=== PATIENT | female | born 1955 | race Caucasian/White ===

== ENCOUNTER 2016-09-27 04:21 | Emergency (ER) | payer MEDICARE, MEDICAID ==
[2016-09-27] MEDS ORDERED: HYDROCODONE/ACETAMINOPHEN 5/325MG TABLET ONE (04:46)
[2016-09-27] MEDS ORDERED: PREDNISONE 20 MG TABLET ONE (04:46)
== END 2016-09-27 06:58 | disposition home or self-care (01) ==
LOC: ED 04:21
DX: J40 Bronchitis, not specified as acute or chronic (principal); I10 Essential (primary) hypertension
CPT/HCPCS: 99283 ×2; J7512; A9270

== ENCOUNTER 2016-10-15 18:20 | Emergency (ER) | payer MEDICARE, MEDICAID ==
[2016-10-15] MEDS ORDERED: SODIUM CHLORIDE 0.9% 1,000 ML ONE (19:04)
[2016-10-15 19:08] LABS: ABSOLUTE NEUTROPHIL COUNT 10.7 K/mm3 (1.8-7.7); BASO % 0.2 % (0.2-1.0); EOS % 0.2 % (0.9-2.9); HEMATOCRIT 36.9 % (37.0-47.0); HEMOGLOBIN 11.9 gm/l (12.0-16.0); IMM NEUT # 0.1 K/mm3 (0-0.2); IMM NEUT% 0.4 % (0-1); LYMPH # 0.8 (1.0-4.8); LYMPH % 6.4 % (15-45); MEAN CELL VOLUME 92.3 fl (81.0-99.0); MEAN CORPUSCULAR HEMOGLOBIN 29.8 pg (27.0-31.0); MEAN CORPUSCULAR HGB CONC 32.2 g/dl (33.0-37.0); MEAN PLATELET VOLUME 9.7 fl (7.4-10.4); MONO # 0.9 (0.0-0.8); MONO % 6.9 % (4-12); NEUT % 85.9 % (43-75); PLATELET COUNT 212 K/mm3 (130-400); RED CELL DISTRIBUTION WIDTH 12.9 % (11.5-14.5)
[2016-10-15 19:24] LABS: ALB/GLOB RATIO 1.6 (>1.0); ALBUMIN 3.7 gm/dL (3.5-5.7); CALCIUM 8.9 mg/dL (8.6-10.3)
[2016-10-15] MEDS ORDERED: ACETAMINOPHEN 500 MG TABLET ONE (19:24)
[2016-10-15 19:28] LABS: TROPONIN I < 0.01 ng/ml (0.0-0.06)
[2016-10-15 19:31] LABS: CKMB ISOENZYME 0.7 ng/ml (0.6-6.3)
[2016-10-15] MEDS ORDERED: AZITHROMYCIN 250 MG TABLET ONE (20:48)
[2016-10-15] MEDS ORDERED: CEFTRIAXONE 1 GRAM DUPLEX 50 ML IV ONE (20:48)
[2016-10-15] MEDS ORDERED: IBUPROFEN 200 MG TABLET ONE (20:51)
--- NOTE | 2016-10-16 09:24 | RAD ---
10/16/2016 9:20 AM CHEST - 2 VIEWS History: Cough with shortness of breath for 2 weeks. Comparison: CT chest 06/08/2015 and chest x-ray 01/09/2013 Findings: Two views of the chest are obtained. The lungs demonstrate patchy posterior left lower lobe airspace disease. There may also be a lingular component. The remainder the lungs are clear. No effusion or pneumothorax. The cardiomediastinal silhouette is unremarkable.. The osseous structures are intact.. IMPRESSION: Left basilar pneumonia..
== END 2016-10-15 21:41 | disposition home or self-care (01) ==
LOC: ED 18:20
DX: J18.9 Pneumonia, unspecified organism (principal); R06.02 Shortness of breath; I10 Essential (primary) hypertension; E03.9 Hypothyroidism, unspecified
CPT/HCPCS: 85025; 82553; 80053; 84484; 71020; 87804; 94664; 99284 ×2; 96374; 96361 ×2; 93005; A9270 ×3; J7030; J0696

== ENCOUNTER 2016-10-16 17:11 | Inpatient (IN) | payer MEDICARE, MEDICAID ==
[2016-10-16] MEDS ORDERED: LACTATED RINGERS 1,000 ML ONE ×2 (17:37→18:15)
[2016-10-16 17:41] LABS: ABSOLUTE NEUTROPHIL COUNT 14.7 K/mm3 (1.8-7.7); BASO % 0.1 % (0.2-1.0); HEMATOCRIT 38.7 % (37.0-47.0); HEMOGLOBIN 12.6 gm/l (12.0-16.0); IMM NEUT # 0.1 K/mm3 (0-0.2); IMM NEUT% 0.6 % (0-1); LYMPH % 6.1 % (15-45); MEAN CELL VOLUME 91.5 fl (81.0-99.0); MEAN CORPUSCULAR HEMOGLOBIN 29.8 pg (27.0-31.0); MEAN CORPUSCULAR HGB CONC 32.6 g/dl (33.0-37.0); MONO # 0.9 (0.0-0.8); MONO % 5.6 % (4-12); NEUT % 87.6 % (43-75); PLATELET COUNT 200 K/mm3 (130-400); RED CELL DISTRIBUTION WIDTH 13.1 % (11.5-14.5)
[2016-10-16] MEDS ORDERED: CEFTRIAXONE 1 GRAM DUPLEX 50 ML IV ONE (17:50)
[2016-10-16 17:53] LABS: ALB/GLOB RATIO 1.5 (>1.0); ALBUMIN 3.6 gm/dL (3.5-5.7); ALT/SGPT 11 U/L (7-52); BLOOD UREA NITROGEN 13 mg/dL (7-25); BUN/CREATININE RATIO 16 (6-20); CALCIUM 8.8 mg/dL (8.6-10.3); GLOMERULAR FILTRATION RATE 72 mL/min (60-85)
[2016-10-16 17:55] LABS: LIPASE < 3 U/L (11-82)
[2016-10-16] MEDS ORDERED: BLISTEX LIPSTICK 1 EACH TP PRN (19:50)
[2016-10-16] MEDS ORDERED: MENTHOL/CETYLPYRD 1 EACH LOZENGE PO PRN (19:50)
[2016-10-16] MEDS ORDERED: BISACODYL 5 MG TABLET.EC PO PRN (19:50)
[2016-10-16] MEDS ORDERED: SODIUM CHLORIDE 0.9% 100 ML IV PRN (19:50)
[2016-10-16] MEDS ORDERED: DIPHENHYDRAMINE HCL 50 MG/1 ML VIAL IV PRN (19:50)
[2016-10-16] MEDS ORDERED: MAGNESIUM HYDROXIDE 30 ML UDCUP PO PRN (19:50)
[2016-10-16] MEDS ORDERED: BISACODYL 10 MG SUP PR PRN (19:50)
[2016-10-16] MEDS ORDERED: CEFTRIAXONE SODIUM 2 G in SODIUM CHLORIDE 0.9% 100 ML IV SCH (20:00)
[2016-10-16] MEDS ORDERED: ALPRAZOLAM 0.5 MG TABLET PO PRN (20:12)
[2016-10-16 21:12] VITALS: BMI 41.8
[2016-10-16] MEDS ORDERED: PUMP TUBING ONE (21:40)
[2016-10-16] MEDS: SODIUM CHLORIDE 0.9% 1,000 ML IV SCH (21:45)
[2016-10-16] MEDS: HYDROCODONE BIT/ACETAMINOPHEN 10 MG/325 MG TAB PO SCH (21:46)
[2016-10-16] MEDS: GABAPENTIN 600 MG TABLET PO SCH (21:46)
[2016-10-16] MEDS: DOCUSATE SODIUM 100 MG CAPSULE PO SCH (21:46)
[2016-10-16] MEDS: OXYBUTYNIN CHLORIDE 5 MG TABLET PO SCH (21:46)
[2016-10-16] MEDS: LEVOFLOXACIN 750 MG/D5W 150 ML 750 MG in Premix (D5W) 150 ml Bag 1 EACH IV SCH (21:51)
[2016-10-17] MEDS: ALPRAZOLAM 0.25 MG TABLET PO PRN ×2 (01:43→12:58)
[2016-10-17] MEDS ORDERED: HYDROCODONE BIT/ACETAMINOPHEN 10 MG/325 MG TAB PO ONE (01:48)
[2016-10-17] MEDS ORDERED: KETOROLAC TROMETHAMINE 30 MG/ML 1 ML VIAL IV ONE (04:00)
[2016-10-17] MEDS: SODIUM CHLORIDE 0.9% 1,000 ML IV SCH ×2 (05:53→16:59)
[2016-10-17 06:05] LABS: ABSOLUTE NEUTROPHIL COUNT 10.1 K/mm3 (1.8-7.7); BASO % 0.2 % (0.2-1.0); EOS % 0.1 % (0.9-2.9); HEMATOCRIT 33.8 % (37.0-47.0); HEMOGLOBIN 10.7 gm/l (12.0-16.0); IMM NEUT # 0.1 K/mm3 (0-0.2); IMM NEUT% 0.6 % (0-1); LYMPH # 1.2 (1.0-4.8); LYMPH % 9.7 % (15-45); MEAN CELL VOLUME 93.1 fl (81.0-99.0); MEAN CORPUSCULAR HEMOGLOBIN 29.5 pg (27.0-31.0); MEAN CORPUSCULAR HGB CONC 31.7 g/dl (33.0-37.0); MEAN PLATELET VOLUME 9.7 fl (7.4-10.4); MONO # 0.8 (0.0-0.8); MONO % 6.4 % (4-12); PLATELET COUNT 172 K/mm3 (130-400)
--- NOTE | 2016-10-17 06:13 | HP ---
CLARITA MONK : 1955 DATE OF ADMISSION: October 16, 2016 CHIEF COMPLAINT: Abdominal pain. 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 Upon presentation to the emergency department, she stated she has three days of worsening shortness of breath and cough. On further discussion with the patient, she has had shortness of breath for the past three days with some fever and cough. She was in the emergency room yesterday for similar symptoms and was found to have a pneumonia, provided with azithromycin and discharged home. She did not improve and developed this abdominal pain and returned to the emergency department this afternoon. She does reside in a care facility. Her [id number] is her daughter. PAST MEDICAL HISTORY: Includes: 1. Organic brain syndrome/brain injury. 2. Hypothyroidism. 3. Hypertension. 4. Neuropathy. 5. Depression. 6. Anxiety. 7. History of large cell B-cell lymphoma in remission. 8. Chronic knee pain. 9. Urinary incontinence. 10. History of alcohol and drug addiction. PAST SURGICAL HISTORY: Includes: 1. Bilateral knee procedures. 2. Abdominal wall hernia repair. 3. Toe amputations. 4. Thyroidectomy. 5. Appendectomy. 6. Cholecystectomy. 7. Tubal ligation. REVIEW OF SYSTEMS: GENERAL: Fever. EENT: Congestion. No throat pain. CARDIOVASCULAR: No chest pain or pressure. RESPIRATORY: Cough and shortness of breath. ABDOMEN: She has upper quadrant abdominal pain. No nausea, vomiting, diarrhea. She is tolerating oral intake. GENITOURINARY: No difficulties with urination. No burning on urination. MUSCULOSKELETAL: Knee pain and thigh pain. NEUROLOGIC: No headaches, no numbness, tingling. ALLERGIES: SULFA. FAMILY MEDICAL HISTORY: Unknown. SOCIAL HISTORY: She resides in an adult foster care facility. with three children. Prior history of alcoholism and drug abuse MEDICATIONS: Include: 1. Senna. 2. [place]. 3. Gabapentin. 4. Ferrous sulfate. 5. Zyrtec. 6. BuSpar. 7. Colace. 8. Abilify. 9. Vitamin D3. 10. Fentanyl patch. 11. Wellbutrin. 12. Prozac. 13. Oxybutynin. 14. Flonase nasal spray. 15. Vitamin B12. 16. Vitamin B1. 17. Allopurinol. 18. Multivitamin. 19. Folic acid. 20. Levothyroxine. 21. Robitussin as needed. 22. Benadryl as needed. 23. Xanax as needed. PHYSICAL EXAM: GENERAL: Patient is alert and oriented, morbidly obese, cooperative. Mild distress due to pain. VITAL SIGNS: In the emergency room, temperature 102.7, heart rate of 108 with a blood pressure of 128/45. She is saturating 93% on three liters per nasal cannula. HEENT: Normocephalic, atraumatic. No tenderness to palpation. Mucous membranes moist. Pupils are equal, round, and reactive. Extraocular muscles are intact. No scleral icterus, conjunctival injection. NECK: Supple, trachea midline. RESPIRATORY: Coarse in the bases, crackles on the left. No wheezing. CARDIOVASCULAR: Tachycardic, it is regular. Positive S1 and S2. She has palpable pulses bilaterally radially and dorsalis pedis. No peripheral edema. ABDOMEN: Soft, nontender, no rebound, no guarding. MUSCULOSKELETAL: She is moving all extremities without difficulty. Nontender. NEUROLOGIC: She is alert and oriented. LABORATORIES: Sodium 134, potassium 3.7, chloride 100, carbon dioxide 24, BUN 13, creatinine 0.8, glucose 121, troponin less than 0.01. Total bilirubin 0.9, AST 18, ALT 11, alkaline phosphatase 85 and a lipase less than 3. White blood cell count is 16.7, hemoglobin of 12.6, hematocrit of 38.7, and platelet count 200. She has a percentage neutrophil count high at 87.6. VBG lactate of 1.1. DIAGNOSTIC IMAGING: Chest x-ray was obtained and interpreted with a left basilar pneumonia. ELECTROCARDIOGRAM: Electrocardiogram was obtained that shows a sinus tachycardia at 100 beats per minute, a [place] interval of 182 ms. QRS duration of 100 ms. QTc of 408 ms. She has a left axis deviation. No acute ST segment elevations or depressions at this time. ASSESSMENT: This is a 61-year-old female with cough and fever found to have a pneumonia, failed outpatient treatment. She was provided with a liter of fluids and a dose of azithromycin in the emergency department. She is being admitted to the floor meeting systemic inflammatory response syndrome criteria with tachycardia. She is febrile and pneumonia on imaging. She does not have any organ dysfunction at this time. PLAN: 1. We will continue fluid IV hydration. 2. We will change her antibiotics to Levaquin as she failed azithromycin outpatient treatment. 3. Monitor closely. 4. For her hypertension, we will monitor as she is not on any antihypertensive. 5. For her hypothyroidism, we will continue her levothyroxine. 6. For her depression and anxiety, we will continue her home medications. 7. For her chronic pain, we will continue her pain medications. 8. She is a FULL CODE at this time. Cc: Ozzy Starr
[2016-10-17 06:28] LABS: CALCIUM 8.3 mg/dL (8.6-10.3)
[2016-10-17] MEDS: FENTANYL PATCH 25 MCG/72 HR 1 EACH TD SCH (07:43)
[2016-10-17] MEDS: LEVOTHYROXINE SODIUM 125 MCG TABLET PO SCH (07:44)
[2016-10-17] MEDS: REMOVE PATCH 1 EACH UNIT TD SCH (07:44)
--- NOTE | 2016-10-17 08:41 | PDOC43 ---
- Subjective Chief Complaint: shortness of breath, LUQ pain Patietn awake, alert, ongoing LUQ/flank pain out of proportion to symptoms. She does not have any nausea but continued pain. Subjective: Reports Urinating Without Difficulty, Reports Shortness of Breath, Reports Cough, Reports Chest Pain, Reports Abdominal Pain, Denies Pain Tolerable , Denies Tolerating Diet Well, Denies Nausea, Denies Vomiting, Denies Fever - Objective Vital Signs Temperature 98.0 F 10/17/16 07:41 Pulse Rate 96 10/17/16 07:41 Respiratory Rate 20 10/17/16 07:49 Blood Pressure 132/64 10/17/16 07:41 O2 Saturation by Pulse Oximetry 93 10/17/16 07:41 Oxygen Delivery Method Nasal Cannula Oxygen Flow Rate 3 Intake and Output 10/15/16 10/16/16 10/17/16 23:59 23:59 23:59 Intake Total 1999 1434 Output Total 1800 Balance 1999 -366 General: Alert, Oriented x3, Cooperative, Other (pale, morbidly obese), No Acute Distress HEENT: Atraumatic, PERRLA, EOMI, Other (mucus membranes slightly dry) Lungs: Normal Air Movement, Other (crackles L base, no wheezing) Cardiovascular: Regular Rate and Rhythm, Normal S1, Normal S2 Abdomen: Soft, Tenderness, Non-Distended, No Rigid, No Rebounding Extremities: No Cyanosis, No Edema, No Tenderness Neurological: Normal Speech Psych/Mental Status: Normal Mood Laboratory 10/17/16 05:30 10/17/16 05:30 10/17/16 05:30 RBC 3.63 L MCHC 31.7 L Calcium 8.3 L Current Medications: Current meds reviewed in EMR. - Problems: Assessment/Plan (1) CAP (community acquired pneumonia) Status: Acute Assessment/Plan: presumed bacterial. Diagnosed 2/ and provided with azithromycin. Returned the next day for continued symptoms. Currently on levaquin with improvement in WBC. She has continued LUQ/flank pain out of proportion to degree of illness. Pain medications ineffective. Will obtain further imaging for possible pancreatitis, nephrolithais (2) Brain injury Qualifiers: Encounter type: initial encounter Loss of consciousness presence/ duration: without LOC Qualifier Code: (S06.9X0A) Unspecified intracranial injury without loss of consciousness, initial encounter Status: Acute Assessment/Plan: chronic condition 2nd to alcohol and drug abuse Stable (3) Hypothyroidism Qualifiers: Hypothyroidism type: acquired Qualifier Code: (E03.9) Hypothyroidism, unspecified Status: Chronic Assessment/Plan: stable (4) Hypertension Qualifiers: Hypertension type: essential hypertension Qualifier Code: (I10) Essential (primary) hypertension Status: Chronic Assessment/Plan: stable (5) Neuropathy Status: Chronic Assessment/Plan: unknown etiology, continue gabapentin (6) Depression Qualifiers: Depression Type: major depressive disorder Major depression recurrence : recurrent Active/Remission status: currently active Major depression episode severity: moderate Qualifier Code: (F33.1) Major depressive disorder , recurrent, moderate Status: Chronic Assessment/Plan: on multiple medications, complicates medical care (7) Chronic pain Qualifiers: Chronic pain type: chronic pain syndrome Qualifier Code: (G89.4) Chronic pain syndrome Status: Chronic Assessment/Plan: unsure of etiology, on fentanyl patch and schedule hydrocodone. Not effective for current pain. VTE Prophylaxis: SCD Disposition: Return to adult foster home
[2016-10-17] MEDS: GABAPENTIN 600 MG TABLET PO SCH ×3 (09:05→20:28)
[2016-10-17] MEDS: ARIPIPRAZOLE 5 MG TABLET PO SCH (09:05)
[2016-10-17] MEDS: CETIRIZINE HCL 10 MG TABLET PO SCH (09:05)
[2016-10-17] MEDS: BUSPIRONE HCL 10 MG TABLET PO SCH ×2 (09:06→20:28)
[2016-10-17] MEDS: OXYBUTYNIN CHLORIDE 5 MG TABLET PO SCH ×2 (09:07→20:27)
[2016-10-17] MEDS: ALLOPURINOL 300 MG TABLET PO SCH (09:07)
[2016-10-17] MEDS: BUPROPION HCL 150 MG XL TAB.ER.24H PO SCH (09:08)
[2016-10-17] MEDS: FLUOXETINE HCL 20 MG CAPSULE PO SCH (09:08)
[2016-10-17] MEDS: CYANOCOBALAMIN (VITAMIN B-12) 250 MCG TABLET PO SCH (09:09)
[2016-10-17] MEDS: FOLIC ACID 1 MG TABLET PO SCH (09:09)
[2016-10-17] MEDS: THIAMINE HCL 100 MG TABLET PO SCH (09:09)
[2016-10-17] MEDS: HYDROCODONE BIT/ACETAMINOPHEN 10 MG/325 MG TAB PO SCH ×4 (09:09→21:10)
[2016-10-17] MEDS: VITAMIN D3 1,000 UNITS CAP.LIQ PO SCH (09:10)
[2016-10-17] MEDS: DOCUSATE SODIUM 100 MG CAPSULE PO SCH ×2 (09:10→20:28)
[2016-10-17] MEDS: FLUTICASONE PROPIONATE 50 MCG/SPRAY 120 SPRAYS/16 G INH NS SCH (09:11)
[2016-10-17] MEDS ORDERED: IOPAMIDOL 300 (61%) 150 ML VIAL IV ONE (09:59)
[2016-10-17] MEDS: FERROUS SULFATE (65 Fe) 325 MG TABLET PO SCH (10:53)
--- NOTE | 2016-10-17 11:25 | CT ---
Exam: CT chest, abdomen and pelvis with contrast COMPARISON: Chest radiograph 10/15/[address] abdomen and pelvis 06/30/2015, 06/08/2015, 05/05/2015 and 01/09/2013 INDICATION: Pneumonia, left-sided flank pain. TECHNIQUE: CT examination of the chest, abdomen and pelvis was obtained following the administration of 125 mL Isovue-300 intravenous contrast. FINDINGS: There is a moderate left-sided pleural effusion, new since the chest radiograph 2 days ago. Although no definite pleural enhancement is seen, there is some fat stranding within the left epicardium in the effusion does appear partially loculated suggesting could reflect an empyema. There is almost complete consolidation/collapse of the left lower lobe, with some opacity also noted within the lingula. The right lung is relatively clear other than some minor right basilar atelectasis. There is no significant mediastinal or hilar lymphadenopathy by size criteria. There is no significant pericardial effusion. Diffuse esophageal thickening is noted. Surgical changes are appreciated within the stomach. A moderate amount of stool is present throughout the colon. There is no bowel obstruction, free air or free intraperitoneal fluid. There is a significant amount of soft tissue density/stranding extending along the root of the mesentery and to lesser extent about the aorta/retroperitoneum. This presumably reflects the treated bulky lymphoma seen on the 2013 CT. Spleen is at the upper limits of normal measuring 13.5 cm in maximum diameter. Gallbladder is absent. Mild intra and extrahepatic biliary ductal dilation is similar, with the distal common bile duct measuring to 9 mm. Left adrenal mass measured 2.1 cm is noted slightly decreased since 05/05/2015. There is a 1.1 cm nodule in the region of the lateral limb of the right adrenal gland which was present in retrospect and is unchanged. No new adrenal mass. The uterus is present. There is no adnexal mass. Urinary bladder unremarkable. There is no hydronephrosis. 1.9 cm low-density lesion within the inferior pole the left kidney is noted and not significantly changed since the 2013 CT. Cyst remains favored. No new renal mass. There has been interval anterior abdominal wall hernia repair. Few tiny fat-containing anterior abdominal hernias are noted. Focally prominent degenerative disc disease is noted at L2-3 and T6-7. Mild superior endplate fracture of T12 is noted and unchanged. IMPRESSION: 1. Moderate left-sided pleural effusion, which is significant change since radiograph on 10/15/2016. Given symptoms and pneumonia, consider thoracentesis for further evaluation to exclude empyema. 2. No additional acute findings identified to explain patient's left upper quadrant/left flank pain. 3. Several stable incidental findings as above, including evidence of treated lymphoma, post cholecystectomy changes, bilateral adrenal nodules, and postsurgical changes in the stomach. Findings were discussed with Dr. Vaughan 1115 hours 10/17/2016.
[2016-10-17 12:57] LABS: SPECIFIC GRAVITY 1.015 (1.001-1.030); URINE BILIRUBIN NEGATIVE (NEGATIVE); URINE BLOOD TRACE (NEGATIVE); URINE GLUCOSE (UA) NEGATIVE (NEGATIVE); URINE LEUKOCYTE ESTERASE NEGATIVE (NEGATIVE); URINE NITRITE NEGATIVE (NEGATIVE); URINE PROTEIN TRACE (NEGATIVE); URINE UROBILINOGEN NORMAL (0-1 mg/dl)
[2016-10-17] MEDS: MULTIVIT W/ MINERALS 1 TAB TABLET PO SCH (12:57)
[2016-10-17 12:58] LABS: URINE APPEARANCE CLEAR; URINE COLOR YELLOW
[2016-10-17 13:05] LABS: INR 1.08; PROTHROMBIN TIME 11.3 SECONDS (9.3-11.4)
[2016-10-17 13:12] LABS: URINE BACTERIA 0; URINE EPITHELIAL CELLS 0-1 /hpf; URINE RBC RARE /hpf; URINE WBC NEG /hpf
[2016-10-17] MEDS ORDERED: SODIUM BICARBONATE 4.2% VIAL 5 ML IM ONE (14:22)
--- NOTE | 2016-10-17 15:19 | US ---
Procedure: Ultrasound-guided left-sided thoracentesis INDICATION: New onset partially loculated left-sided pleural effusion in the setting of pneumonia. TECHNIQUE: The procedure and benefits and risks of the procedure were discussed with the patient. All questions were answered. Informed consent was obtained and witnessed and documentation was placed in the patient's medical record. After a timeout was performed documenting correct patient with name and date of as well as correct side/site, ultrasound was utilized to bobby an appropriate entrance site on the posterior left chest wall. The posterior left chest wall was prepped and draped in the usual sterile fashion. 1% lidocaine mixed with bicarbonate was administered to achieve a regional anesthesia. Under ultrasound guidance, approximately 250 mL of slightly turbid yellow fluid was withdrawn and sent to laboratory for analysis. Post procedure imaging demonstrated a minimal amount of fluid within the dependent pleural space. The patient tolerated the procedure and there were no immediate complications. IMPRESSION: Successful ultrasound-guided left-sided thoracentesis.
[2016-10-17] MEDS: LEVOFLOXACIN 750 MG/D5W 150 ML 750 MG in Premix (D5W) 150 ml Bag 1 EACH IV SCH (21:10)
[2016-10-18] MEDS: ALPRAZOLAM 0.25 MG TABLET PO PRN ×3 (00:44→22:37)
[2016-10-18] MEDS: HYDROCODONE BIT/ACETAMINOPHEN 10 MG/325 MG TAB PO SCH ×5 (00:48→20:41)
[2016-10-18] MEDS: SODIUM CHLORIDE 0.9% 1,000 ML IV SCH ×4 (02:02→22:38)
[2016-10-18 06:04] LABS: ABSOLUTE NEUTROPHIL COUNT 5.2 K/mm3 (1.8-7.7); BASO # 0.1 K/mm3 (0.0-0.2); BASO % 0.8 % (0.2-1.0); EOS # 0.2 (0.0-0.5); EOS % 2.6 % (0.9-2.9); HEMATOCRIT 40.8 % (37.0-47.0); HEMOGLOBIN 12.8 gm/l (12.0-16.0); IMM NEUT% 0.4 % (0-1); LYMPH # 2.9 (1.0-4.8); LYMPH % 31.1 % (15-45); MEAN CELL VOLUME 89.5 fl (81.0-99.0); MEAN CORPUSCULAR HEMOGLOBIN 28.1 pg (27.0-31.0); MEAN CORPUSCULAR HGB CONC 31.4 g/dl (33.0-37.0); MEAN PLATELET VOLUME 9.7 fl (7.4-10.4); MONO # 0.8 (0.0-0.8); NEUT % 56.1 % (43-75); PLATELET COUNT 191 K/mm3 (130-400); RED CELL DISTRIBUTION WIDTH 14.2 % (11.5-14.5)
[2016-10-18 06:19] LABS: CALCIUM 9.1 mg/dL (8.6-10.3)
[2016-10-18] MEDS: LEVOTHYROXINE SODIUM 125 MCG TABLET PO SCH (07:25)
[2016-10-18] MEDS: FLUTICASONE PROPIONATE 50 MCG/SPRAY 120 SPRAYS/16 G INH NS SCH (09:00)
[2016-10-18] MEDS: BUSPIRONE HCL 10 MG TABLET PO SCH ×2 (09:01→20:41)
[2016-10-18] MEDS: FLUOXETINE HCL 20 MG CAPSULE PO SCH (09:01)
[2016-10-18] MEDS: OXYBUTYNIN CHLORIDE 5 MG TABLET PO SCH ×2 (09:01→20:40)
[2016-10-18] MEDS: BUPROPION HCL 150 MG XL TAB.ER.24H PO SCH (09:01)
[2016-10-18] MEDS: ALLOPURINOL 300 MG TABLET PO SCH (09:01)
[2016-10-18] MEDS: VITAMIN D3 1,000 UNITS CAP.LIQ PO SCH (09:02)
[2016-10-18] MEDS: ARIPIPRAZOLE 5 MG TABLET PO SCH (09:02)
[2016-10-18] MEDS: FOLIC ACID 1 MG TABLET PO SCH (09:02)
[2016-10-18] MEDS: GABAPENTIN 600 MG TABLET PO SCH ×3 (09:02→20:41)
[2016-10-18] MEDS: CETIRIZINE HCL 10 MG TABLET PO SCH (09:02)
[2016-10-18] MEDS: CYANOCOBALAMIN (VITAMIN B-12) 250 MCG TABLET PO SCH (09:03)
[2016-10-18] MEDS: DOCUSATE SODIUM 100 MG CAPSULE PO SCH ×2 (09:03→20:40)
[2016-10-18] MEDS: THIAMINE HCL 100 MG TABLET PO SCH (09:03)
[2016-10-18] MEDS: REMOVE PATCH 1 EACH UNIT TD SCH (09:25)
--- NOTE | 2016-10-18 10:38 | RAD ---
History: Follow-up effusion. Comparison: CT examination dated 10/17/2016. Technique: 2 views Findings: Images demonstrated normal appearance of the osseous structures. The heart size appears to be stable. There is blunting of the left costophrenic sulcus consistent with a left pleural effusion with a laterally located loculated component similar to the appearance on prior CT examination. The right lung field is clear. The hilar and mediastinal structures are intact. Impression: 1. Reidentification of the left pleural effusion with evidence of loculated components both laterally and posteriorly. The appearance is stable to slightly improved to the appearance on prior CT examination.
[2016-10-18] MEDS ORDERED: IV START KIT ONE (10:57)
[2016-10-18] MEDS: FERROUS SULFATE (65 Fe) 325 MG TABLET PO SCH (12:00)
[2016-10-18] MEDS: MULTIVIT W/ MINERALS 1 TAB TABLET PO SCH (12:00)
--- NOTE | 2016-10-18 16:36 | PDOC43 ---
- Subjective Chief Complaint: shortness of breath, LUQ pain Patient awake without complaints. Her left flank/UQ pain slight improvement. Breathing is easier, cough decreasing. Tolerating diet Subjective: Reports Pain Tolerable, Reports Tolerating Diet Well, Reports Adequate Oral Intake, Reports Urinating Without Difficulty, Reports Cough, Reports Abdominal Pain, Denies Shortness of Breath, Denies Chest Pain, Denies Nausea, Denies Vomiting - Objective Vital Signs Temperature 98.0 F 10/18/16 15:31 Pulse Rate 100 10/18/16 15:31 Respiratory Rate 20 10/18/16 15:31 Blood Pressure 132/60 10/18/16 15:31 O2 Saturation by Pulse Oximetry 94 10/18/16 15:31 Oxygen Delivery Method Nasal Cannula Oxygen Flow Rate 2 Intake and Output 10/16/16 10/17/16 10/18/16 23:59 23:59 23:59 Intake Total 1999 3237 5559 Output Total 2500 600 Balance 1999 737 2179 General: Alert, Oriented x3, Cooperative, Other (pale, morbidly obese), No Acute Distress HEENT: Atraumatic, PERRLA, EOMI, Mucous membr. moist/pink Lungs: Normal Air Movement, Other (crackle LLL) Cardiovascular: Regular Rate and Rhythm, Normal S1, Normal S2 Abdomen: Soft, Non-Distended, No Rigid, No Tenderness, No Rebounding Extremities: No Cyanosis, No Edema, No Tenderness Neurological: Normal Speech Psych/Mental Status: Normal Mood Laboratory 10/18/16 05:30 10/18/16 05:30 10/18/16 05:30 MCHC 31.4 L Estimated GFR 56 L Current Medications: Current meds reviewed in EMR. - Problems: Assessment/Plan (1) CAP (community acquired pneumonia) Status: Acute Assessment/Plan: presumed bacterial. Diagnosed 10/15 and provided with azithromycin. Returned the next day for continued symptoms. Currently on levaquin with improvement in WBC. She has continued LUQ/flank pain out of proportion to degree of illness. Pain medications ineffective. Will obtain further imaging for possible pancreatitis, nephrolithais CT revealed pleural effusion. Thoracentesis performed but fluid collection loculated and very little fluid obtained. Slight improvement on CXR this morning. WBC trending down to expected range. BC with gram positive cocci in clusters, adding vancomycin. Still requiring supplemental oxygen (2) Brain injury Qualifiers: Encounter type: subsequent encounter Loss of consciousness presence/ duration: without LOC Qualifier Code: (S06.9X0D) Unspecified intracranial injury without loss of consciousness, subsequent encounter Status: Chronic Assessment/Plan: chronic condition 2nd to alcohol and drug abuse Stable Chronic brain injury 2nd to drug and alcohol abuse and dependence. Stable condition (3) Hypothyroidism Qualifiers: Hypothyroidism type: acquired Qualifier Code: (E03.9) Hypothyroidism, unspecified Status: Chronic Assessment/Plan: stable (4) Hypertension Qualifiers: Hypertension type: essential hypertension Qualifier Code: (I10) Essential (primary) hypertension Status: Chronic Assessment/Plan: stable (5) Neuropathy Status: Chronic Assessment/Plan: unknown etiology, continue gabapentin (6) Depression Qualifiers: Depression Type: major depressive disorder Major depression recurrence : recurrent Active/Remission status: currently active Major depression episode severity: moderate Qualifier Code: (F33.1) Major depressive disorder , recurrent, moderate Status: Chronic Assessment/Plan: on multiple medications, complicates medical care (7) Chronic pain Qualifiers: Chronic pain type: chronic pain syndrome Qualifier Code: (G89.4) Chronic pain syndrome Status: Chronic Assessment/Plan: unsure of etiology, on fentanyl patch and schedule hydrocodone. Not effective for current pain. VTE Prophylaxis: SCD Disposition: Return to adult foster home
[2016-10-18] MEDS: VANCOMYCIN HCL 2.5 G in SODIUM CHLORIDE 0.9% 500 ML IV SCH (17:16)
[2016-10-18] MEDS: LEVOFLOXACIN 750 MG/D5W 150 ML 750 MG in Premix (D5W) 150 ml Bag 1 EACH IV SCH (20:40)
[2016-10-19] MEDS: ACETAMINOPHEN 325 MG TABLET PO PRN ×4 (00:48→22:32)
[2016-10-19] MEDS: SODIUM CHLORIDE 0.9% 1,000 ML IV SCH (06:38)
[2016-10-19] MEDS: LEVOTHYROXINE SODIUM 125 MCG TABLET PO SCH (07:54)
[2016-10-19 07:56] LABS: BODY FLUID APPEARANCE TURBID; BODY FLUID COLOR YELLOW; BODY FLUID RBC 3000 k/uL
[2016-10-19 07:57] LABS: BODY FLUID WBC 3577 /uL
[2016-10-19] MEDS ORDERED: FLUTICASONE PROPIONATE 50 MCG/SPRAY 120 SPRAYS/16 G INH NS SCH (08:15)
[2016-10-19 09:14] LABS: ABSOLUTE NEUTROPHIL COUNT 7.7 K/mm3 (1.8-7.7); BASO % 0.2 % (0.2-1.0); EOS # 0.1 (0.0-0.5); EOS % 1.3 % (0.9-2.9); HEMATOCRIT 33.9 % (37.0-47.0); IMM NEUT # 0.1 K/mm3 (0-0.2); IMM NEUT% 0.9 % (0-1); LYMPH # 0.7 (1.0-4.8); LYMPH % 7.7 % (15-45); MEAN CELL VOLUME 90.6 fl (81.0-99.0); MEAN CORPUSCULAR HEMOGLOBIN 29.4 pg (27.0-31.0); MEAN CORPUSCULAR HGB CONC 32.4 g/dl (33.0-37.0); MEAN PLATELET VOLUME 9.7 fl (7.4-10.4); MONO # 0.6 (0.0-0.8); MONO % 6.8 % (4-12); NEUT % 83.1 % (43-75); PLATELET COUNT 190 K/mm3 (130-400); RED CELL DISTRIBUTION WIDTH 13.4 % (11.5-14.5)
[2016-10-19] MEDS: FLUTICASONE PROPIONATE 50 MCG/SPRAY 120 SPRAYS/16 G INH NS SCH (09:27)
[2016-10-19] MEDS: BUPROPION HCL 150 MG XL TAB.ER.24H PO SCH (09:28)
[2016-10-19] MEDS: BUSPIRONE HCL 10 MG TABLET PO SCH ×2 (09:28→20:50)
[2016-10-19] MEDS: DOCUSATE SODIUM 100 MG CAPSULE PO SCH ×2 (09:28→20:51)
[2016-10-19] MEDS: ARIPIPRAZOLE 5 MG TABLET PO SCH (09:28)
[2016-10-19] MEDS: THIAMINE HCL 100 MG TABLET PO SCH (09:29)
[2016-10-19] MEDS: VITAMIN D3 1,000 UNITS CAP.LIQ PO SCH (09:29)
[2016-10-19] MEDS: ALLOPURINOL 300 MG TABLET PO SCH (09:29)
[2016-10-19] MEDS: CETIRIZINE HCL 10 MG TABLET PO SCH (09:29)
[2016-10-19] MEDS: FLUOXETINE HCL 20 MG CAPSULE PO SCH (09:29)
[2016-10-19] MEDS: OXYBUTYNIN CHLORIDE 5 MG TABLET PO SCH ×2 (09:30→20:50)
[2016-10-19] MEDS: FOLIC ACID 1 MG TABLET PO SCH (09:30)
[2016-10-19] MEDS: CYANOCOBALAMIN (VITAMIN B-12) 250 MCG TABLET PO SCH (09:30)
[2016-10-19] MEDS: GABAPENTIN 600 MG TABLET PO SCH ×3 (09:31→20:50)
[2016-10-19] MEDS: HYDROCODONE BIT/ACETAMINOPHEN 10 MG/325 MG TAB PO SCH ×4 (09:31→20:51)
[2016-10-19 09:35] LABS: CALCIUM 8.2 mg/dL (8.6-10.3)
--- NOTE | 2016-10-19 09:54 | PDOC43 ---
- Subjective Chief Complaint: shortness of breath, LUQ pain Patient feeling improvement, pain is lessening. Shortness of breath and cough improving. She is tolerating diet and working with therapy Subjective: Reports Pain Tolerable, Reports Tolerating Diet Well, Reports Adequate Oral Intake, Reports Urinating Without Difficulty, Reports Shortness of Breath, Reports Cough, Denies Chest Pain, Denies Abdominal Pain, Denies Nausea, Denies Vomiting - Objective Vital Signs Temperature 98.6 F 10/19/16 07:37 Pulse Rate 101 10/19/16 07:37 Respiratory Rate 20 10/19/16 08:00 Blood Pressure 168/93 10/19/16 07:37 O2 Saturation by Pulse Oximetry 95 10/19/16 07:37 Oxygen Delivery Method Nasal Cannula Oxygen Flow Rate 2 Intake and Output 10/17/16 10/18/16 10/19/16 23:59 23:59 23:59 Intake Total 3237 5380 2448 Output Total 2500 1800 450 Balance 737 3580 1997 General: Alert, Oriented x3, Cooperative, No Acute Distress HEENT: Atraumatic, PERRLA, EOMI, Mucous membr. moist/pink Lungs: Normal Air Movement, Other (crackles left abreu) Cardiovascular: Regular Rate and Rhythm, Normal S1, Normal S2 Abdomen: Soft, Non-Distended, No Rigid, No Tenderness, No Rebounding Extremities: No Cyanosis, No Edema, No Tenderness Neurological: Normal Speech Psych/Mental Status: Normal Mood Laboratory 10/19/16 09:00 10/19/16 09:00 10/19/16 09:00 RBC 3.74 L MCHC 32.4 L Calcium 8.2 L Current Medications: Current meds reviewed in EMR. - Problems: Assessment/Plan (1) CAP (community acquired pneumonia) Status: Acute Assessment/Plan: presumed bacterial. Diagnosed 10/15 and provided with azithromycin. Returned the next day for continued symptoms. Currently on levaquin with improvement in WBC. She has continued LUQ/flank pain out of proportion to degree of illness. Pain medications ineffective. Will obtain further imaging for possible pancreatitis, nephrolithais CT revealed pleural effusion. Thoracentesis performed but fluid collection loculated and very little fluid obtained. Slight improvement on CXR this morning. WBC trending down to expected range. BC with gram positive cocci in clusters, adding vancomycin. Still requiring supplemental oxygen. Fluid culture with presumptive staph aureus, sensitivities TBD (2) Brain injury Qualifiers: Encounter type: subsequent encounter Loss of consciousness presence/ duration: without LOC Qualifier Code: (S06.9X0D) Unspecified intracranial injury without loss of consciousness, subsequent encounter Status: Chronic Assessment/Plan: chronic condition 2nd to alcohol and drug abuse Stable Chronic brain injury 2nd to drug and alcohol abuse and dependence. Stable condition (3) Hypothyroidism Qualifiers: Hypothyroidism type: acquired Qualifier Code: (E03.9) Hypothyroidism, unspecified Status: Chronic Assessment/Plan: stable (4) Hypertension Qualifiers: Hypertension type: essential hypertension Qualifier Code: (I10) Essential (primary) hypertension Status: Chronic Assessment/Plan: stable (5) Neuropathy Status: Chronic Assessment/Plan: unknown etiology, continue gabapentin (6) Depression Qualifiers: Depression Type: major depressive disorder Major depression recurrence : recurrent Active/Remission status: currently active Major depression episode severity: moderate Qualifier Code: (F33.1) Major depressive disorder , recurrent, moderate Status: Chronic Assessment/Plan: on multiple medications, complicates medical care (7) Chronic pain Qualifiers: Chronic pain type: chronic pain syndrome Qualifier Code: (G89.4) Chronic pain syndrome Status: Chronic Assessment/Plan: unsure of etiology, on fentanyl patch and schedule hydrocodone. Not effective for current pain. (8) Sepsis Qualifiers: Sepsis type: sepsis due to unspecified organism Qualifier Code: (A41.9 ) Sepsis, unspecified organism Status: Acute Assessment/Plan: Resolved. 2nd to CAP with presumptive staph aureus on pleural fluid, waiting sensitivities. Still requires supplemental oxygen VTE Prophylaxis: SCD Disposition: Return to adult foster home
[2016-10-19] MEDS: FERROUS SULFATE (65 Fe) 325 MG TABLET PO SCH (11:54)
[2016-10-19] MEDS: ALPRAZOLAM 0.25 MG TABLET PO PRN ×2 (11:55→22:31)
[2016-10-19] MEDS: MULTIVIT W/ MINERALS 1 TAB TABLET PO SCH (11:55)
[2016-10-19 16:55] LABS: BODY FLUID MONONUCLEAR 4 %; BODY FLUID NEUTROPHIL 96 %; BODY FLUID SOURCE PLEURAL
[2016-10-19] MEDS: VANCOMYCIN HCL 2.5 G in SODIUM CHLORIDE 0.9% 500 ML IV SCH (17:04)
[2016-10-19] MEDS: LEVOFLOXACIN 750 MG/D5W 150 ML 750 MG in Premix (D5W) 150 ml Bag 1 EACH IV SCH (20:52)
[2016-10-20] MEDS: ACETAMINOPHEN 325 MG TABLET PO PRN ×2 (04:41→19:18)
[2016-10-20 06:33] LABS: HEMATOCRIT 30.9 % (37.0-47.0); HEMOGLOBIN 10.2 gm/l (12.0-16.0); MEAN CELL VOLUME 90.4 fl (81.0-99.0); MEAN CORPUSCULAR HEMOGLOBIN 29.8 pg (27.0-31.0); RED CELL DISTRIBUTION WIDTH 13.4 % (11.5-14.5)
[2016-10-20 06:55] LABS: CALCIUM 8.3 mg/dL (8.6-10.3)
[2016-10-20] MEDS: FENTANYL PATCH 25 MCG/72 HR 1 EACH TD SCH (07:33)
[2016-10-20] MEDS: LEVOTHYROXINE SODIUM 125 MCG TABLET PO SCH (07:34)
[2016-10-20] MEDS: HYDROCODONE BIT/ACETAMINOPHEN 10 MG/325 MG TAB PO SCH ×5 (07:50→20:40)
[2016-10-20] MEDS: CETIRIZINE HCL 10 MG TABLET PO SCH (09:11)
[2016-10-20] MEDS: BUPROPION HCL 150 MG XL TAB.ER.24H PO SCH (09:11)
[2016-10-20] MEDS: GABAPENTIN 600 MG TABLET PO SCH ×3 (09:12→20:39)
[2016-10-20] MEDS: FLUOXETINE HCL 20 MG CAPSULE PO SCH (09:12)
[2016-10-20] MEDS: BUSPIRONE HCL 10 MG TABLET PO SCH ×2 (09:12→19:17)
[2016-10-20] MEDS: DOCUSATE SODIUM 100 MG CAPSULE PO SCH ×2 (09:12→20:39)
[2016-10-20] MEDS: ALLOPURINOL 300 MG TABLET PO SCH (09:12)
[2016-10-20] MEDS: THIAMINE HCL 100 MG TABLET PO SCH (09:13)
[2016-10-20] MEDS: FOLIC ACID 1 MG TABLET PO SCH (09:13)
[2016-10-20] MEDS: CYANOCOBALAMIN (VITAMIN B-12) 250 MCG TABLET PO SCH (09:13)
[2016-10-20] MEDS: OXYBUTYNIN CHLORIDE 5 MG TABLET PO SCH ×2 (09:13→20:40)
[2016-10-20] MEDS: VITAMIN D3 1,000 UNITS CAP.LIQ PO SCH (09:13)
[2016-10-20] MEDS: ARIPIPRAZOLE 5 MG TABLET PO SCH (12:57)
[2016-10-20] MEDS: MULTIVIT W/ MINERALS 1 TAB TABLET PO SCH (12:57)
[2016-10-20] MEDS: FLUTICASONE PROPIONATE 50 MCG/SPRAY 120 SPRAYS/16 G INH NS SCH (12:57)
[2016-10-20] MEDS: FERROUS SULFATE (65 Fe) 325 MG TABLET PO SCH (12:58)
[2016-10-20] MEDS: REMOVE PATCH 1 EACH UNIT TD SCH (13:06)
[2016-10-20] MEDS ORDERED: LORAZEPAM 2 MG/ML 1ML SDV IV PRN (16:20)
--- NOTE | 2016-10-20 16:21 | PDOC43 ---
- Subjective Chief Complaint: shortness of breath, LUQ pain Patient reports feeling better today, but still sore on the L side of her chest , although it is improving some. No new c/o. - Objective Vital Signs Temperature 98.0 F 10/20/16 09:14 Pulse Rate 96 10/20/16 09:14 Respiratory Rate 20 10/20/16 09:14 Blood Pressure 156/101 10/20/16 09:14 O2 Saturation by Pulse Oximetry 94 10/20/16 09:14 Oxygen Delivery Method Room Air Oxygen Flow Rate 0 Vital Signs Last 12 Hours Temp Pulse Resp BP Pulse Ox 10/20/16 09:14 98.0 F 96 20 156/101 94 10/20/16 08:50 98 148/95 92 10/20/16 08:00 89 91 10/20/16 07:59 20 10/20/16 07:33 92 10/20/16 07:32 98.0 F 94 20 150/84 89 Intake and Output 10/18/16 10/19/16 10/20/16 23:59 23:59 23:59 Intake Total 5380 3523 200 Output Total 1800 1450 900 Balance 3580 2073 -700 General: Alert, Cooperative, No Acute Distress Lungs: Other (decreased on L side, some hesitation noted.) Cardiovascular: Regular Rate and Rhythm Abdomen: Soft, Normal Bowel Sounds, Non-Distended Extremities: No Edema Skin: Warm, Other (pale) Neurological: Normal Speech Psych/Mental Status: Normal Affect, Normal Mood Laboratory 10/20/16 05:30 10/20/16 05:30 10/20/16 05:30 RBC 3.42 L Calcium 8.3 L CXR 10/20/16 Impression: 1. Reidentification of the left pleural effusion with evidence of loculated components both laterally and posteriorly. The appearance is stable to slightly improved to the appearance on prior CT examination. Current Medications: Current meds reviewed in EMR. Active Medications Acetaminophen (Tylenol) 650 mg PO Q6-8H PRN PRN Reason: Pain Last Admin: 10/20/16 04:41 Dose: 650 mg Acetaminophen/Hydrocodone Bitart ([place] 10/325) 1 tab PO QID [facility] Last Admin: 10/20/16 12:58 Dose: 1 tab Allopurinol (Zyloprim) 300 mg PO DAILY [facility] Last Admin: 10/20/16 09:12 Dose: 300 mg Alprazolam (Xanax) 0.5 mg PO TID PRN PRN Reason: Anxiety Last Admin: 10/19/16 22:31 Dose: 0.5 mg Aripiprazole (Abilify) 5 mg PO DAILY [facility] Benzocaine/Menthol (Cepacol) 1 each PO PRN PRN PRN Reason: Sore Throat Bisacodyl (Dulcolax) 10 mg [place] DAILY PRN PRN Reason: Constipation Bisacodyl (Dulcolax) 5 mg PO DAILY PRN PRN Reason: Constipation Bupropion HCl (Wellbutrin Xl) 300 mg PO QAM [facility] Last Admin: 10/20/16 09:11 Dose: 300 mg Buspirone HCl (Buspar) 30 mg PO QAM [facility] Last Admin: 10/20/16 09:12 Dose: 30 mg Buspirone HCl (Buspar) 15 mg PO QPM [facility] Last Admin: 10/19/16 20:50 Dose: 15 mg Cetirizine HCl (Zyrtec) 10 mg PO DAILY [facility] Last Admin: 10/20/16 09:11 Dose: 10 mg Cholecalciferol (Vitamin D3) 1,000 units PO DAILY [facility] Last Admin: 10/20/16 09:13 Dose: 1,000 units Cyanocobalamin (Vitamin B-12) 125 mcg PO DAILY [facility] Last Admin: 10/20/16 09:13 Dose: 125 mcg Docusate Sodium (Colace) 100 mg PO BID [facility] Last Admin: 10/20/16 09:12 Dose: 100 mg Fentanyl (Duragesic 25) 1 each TD Q72H [facility] Last Admin: 10/20/16 07:33 Dose: 1 each Ferrous Sulfate (Ferrous Sulfate) 325 mg PO 1130 [facility] Last Admin: 10/20/16 12:58 Dose: 325 mg Fluoxetine HCl (Prozac) 80 mg PO DAILY [facility] Last Admin: 10/20/16 09:12 Dose: 80 mg Fluticasone Propionate (Flonase Nasal [place]) 1 sprays NS DAILY [facility] Last Admin: 10/20/16 12:57 Dose: 1 sprays Folic Acid (Folic Acid) 1 mg PO DAILY [facility] Last Admin: 10/20/16 09:13 Dose: 1 mg Gabapentin (Neurontin) 600 mg PO TID [facility] Last Admin: 10/20/16 09:12 Dose: 600 mg Sodium Chloride (Sodium Chloride 0.9%) 100 mls @ 25 mls/hr IV PRN PRN PRN Reason: Flush Levofloxacin/Dextrose 750 mg/ (Premix (D5W) 150 ml Bag) 150 mls @ 100 mls/hr IV Q24H [facility] Last Admin: 10/19/16 20:52 Dose: 100 mls/hr Vancomycin HCl 2.5 g/ Sodium (Chloride) 550 mls @ 275 mls/hr IV Q24H [facility] PRN Reason: Protocol Last Admin: 10/19/16 17:04 Dose: 275 mls/hr Levothyroxine Sodium (Levothroid) 125 mcg PO QAMAC [facility] Last Admin: 10/20/16 07:34 Dose: 125 mcg Magnesium Hydroxide (Milk Of Magnesia) 30 ml PO DAILY PRN PRN Reason: Constipation Miscellaneous (Remove Patch) 1 each TD Q3D [facility] Last Admin: 10/20/16 13:06 Dose: 1 each Multivitamins/Minerals (Theragran-M) 1 tab PO 1200 [facility] Last Admin: 10/20/16 12:57 Dose: 1 tab Oxybutynin Chloride (Ditropan) 10 mg PO BID [facility] Last Admin: 10/20/16 09:13 Dose: 10 mg Petrolatum/Paraffin/Mineral Oil (Blistex) 1 each TP PRN PRN PRN Reason: Dry and/or chapped lips Sodium Chloride (Normal Saline 10ml Flush) 10 - 50 ml IV PRN PRN PRN Reason: IV Flush Last Admin: 10/19/16 22:32 Dose: 10 ml Sodium Chloride (Normal Saline 10ml Flush) 10 ml IV Q8HR [facility] Last Admin: 10/20/16 01:47 Dose: 10 ml Thiamine HCl (Thiamine Hcl) 100 mg PO DAILY [facility] Last Admin: 10/20/16 09:13 Dose: 100 mg - Problems: Assessment/Plan (1) CAP (community acquired pneumonia) Status: AcuteAssessment/Plan: presumed bacterial, with MRSA identified on culture from thoracocentesis. Diagnosed 2, initially tx with azithromycin. Had returned the next day for continued symptoms. Had been on Levaquin with improvement in WBC, but continued LUQ/flank pain out of proportion to degree of illness. CT revealed pleural effusion. Thoracentesis performed but fluid collection loculated and very little fluid obtained. Slight improvement on CXR, WBC trending down to expected range. BC with gram positive cocci in clusters (turned out to be coag neg), added vancomycin. However, Fluid culture with MRSA. Checking LLD film to see degree of clearing, and if referral to chest surgeon/ VATS desired. Continue vancomycin consider for PICC line as well. 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 Pleasant and alert today. (3) Chronic pain Qualifiers: Chronic pain type: chronic pain syndrome Qualifier Code: (G89.4) Chronic pain syndrome Status: ChronicAssessment/Plan: Persisting effusion suspected cause, on fentanyl patch and scheduled hydrocodone. (4) Hypertension Qualifiers: Hypertension type: essential hypertension Qualifier Code: (I10) Essential (primary) hypertension Status: ChronicAssessment/Plan: stable. VTE Prophylaxis: SCD Disposition: Return to adult foster home anticipated, but will need to see resolution of effusion
[2016-10-20] MEDS: VANCOMYCIN HCL 2.5 G in SODIUM CHLORIDE 0.9% 500 ML IV SCH (16:49)
--- NOTE | 2016-10-20 16:55 | RAD ---
History: Follow-up effusion. Comparison: To 2016. Technique: 2 views Findings: 3 views of the chest including a left lateral decubitus view were performed. The osseous structures remain intact. The heart size is stable. There is blunting of the left costophrenic sulcus with increased density again noted along the lateral aspect of the left chest. The appearance is consistent with a left pleural effusion with a likely loculated component. The appearance is similar to that seen on prior plain film examination. The decubitus view is somewhat difficult to interpret as the dependent left lung is not well aerated due to its dependent position. However, the amount of aerated lung is relatively stable to the frontal view obtained. Impression: 1. Blunting of the left costophrenic sulcus suggestive of a left pleural effusion with the suggestion of a loculated component laterally. The appearance is similar to that seen on prior exam of 10/18/2016. As the appearance is relatively stable on the decubitus view, this suggests the majority may be loculated.
[2016-10-20] MEDS: LEVOFLOXACIN 750 MG/D5W 150 ML 750 MG in Premix (D5W) 150 ml Bag 1 EACH IV SCH (20:40)
[2016-10-20] MEDS: ALPRAZOLAM 0.25 MG TABLET PO PRN (21:51)
[2016-10-20] MEDS: NAPROXEN 250 MG TABLET PO PRN (21:51)
[2016-10-21] MEDS: HYDROCODONE BIT/ACETAMINOPHEN 10 MG/325 MG TAB PO SCH ×6 (01:11→20:29)
[2016-10-21 06:45] LABS: ABSOLUTE NEUTROPHIL COUNT 5.3 K/mm3 (1.8-7.7); BASO % 0.4 % (0.2-1.0); EOS # 0.2 (0.0-0.5); EOS % 3.1 % (0.9-2.9); HEMATOCRIT 32.5 % (37.0-47.0); HEMOGLOBIN 10.3 gm/l (12.0-16.0); IMM NEUT # 0.2 K/mm3 (0-0.2); LYMPH # 1.2 (1.0-4.8); LYMPH % 16.1 % (15-45); MEAN CELL VOLUME 91.5 fl (81.0-99.0); MEAN CORPUSCULAR HGB CONC 31.7 g/dl (33.0-37.0); MEAN PLATELET VOLUME 9.7 fl (7.4-10.4); MONO # 0.6 (0.0-0.8); MONO % 7.5 % (4-12); NEUT % 70.9 % (43-75); PLATELET COUNT 215 K/mm3 (130-400); RED CELL DISTRIBUTION WIDTH 13.3 % (11.5-14.5)
[2016-10-21 07:02] LABS: ALBUMIN 2.7 gm/dL (3.5-5.7); CALCIUM 8.5 mg/dL (8.6-10.3)
[2016-10-21] MEDS: LEVOTHYROXINE SODIUM 125 MCG TABLET PO SCH (07:25)
--- NOTE | 2016-10-21 08:09 | RAD ---
Exam: Portable chest COMPARISON: Multiple similar previous exams, the most recent of which was obtained on 10/20/2016 INDICATION: Follow-up pleural effusion. Findings: A semierect AP portable view of the chest at 0642 hours demonstrates a persistent a loculated left-sided pleural effusion, not significantly changed since yesterday's exam. Left basilar airspace disease persists. Right lung remains clear. Cardiac silhouette is within normal limits. Numerable surgical clips are again noted in the upper abdomen. IMPRESSION: Persistent loculated left-sided pleural effusion, similar to that seen yesterday.
[2016-10-21] MEDS ORDERED: ARIPIPRAZOLE 10 MG TABLET PO SCH (09:00)
[2016-10-21] MEDS: FLUTICASONE PROPIONATE 50 MCG/SPRAY 120 SPRAYS/16 G INH NS SCH (09:18)
[2016-10-21] MEDS: CYANOCOBALAMIN (VITAMIN B-12) 250 MCG TABLET PO SCH (09:19)
[2016-10-21] MEDS: THIAMINE HCL 100 MG TABLET PO SCH (09:19)
[2016-10-21] MEDS: FLUOXETINE HCL 20 MG CAPSULE PO SCH (09:20)
[2016-10-21] MEDS: VITAMIN D3 1,000 UNITS CAP.LIQ PO SCH (09:20)
[2016-10-21] MEDS: BUSPIRONE HCL 10 MG TABLET PO SCH ×2 (09:21→20:27)
[2016-10-21] MEDS: CETIRIZINE HCL 10 MG TABLET PO SCH (09:21)
[2016-10-21] MEDS: BUPROPION HCL 150 MG XL TAB.ER.24H PO SCH (09:22)
[2016-10-21] MEDS: OXYBUTYNIN CHLORIDE 5 MG TABLET PO SCH ×2 (09:23→20:29)
[2016-10-21] MEDS: DOCUSATE SODIUM 100 MG CAPSULE PO SCH ×2 (09:23→20:27)
[2016-10-21] MEDS: GABAPENTIN 600 MG TABLET PO SCH ×3 (09:23→20:27)
[2016-10-21] MEDS: ALLOPURINOL 300 MG TABLET PO SCH (09:24)
[2016-10-21] MEDS: FOLIC ACID 1 MG TABLET PO SCH (09:24)
--- NOTE | 2016-10-21 10:42 | PDOC43 ---
- Subjective Chief Complaint: shortness of breath, LUQ pain Patient reports some soreness at pigtail site, but otherwise breathing ok, doing ok. No new c/o. Got PICC line as well today. - Objective Vital Signs Temperature 98.3 F 10/21/16 07:11 Pulse Rate 90 10/21/16 07:11 Respiratory Rate 16 10/21/16 07:11 Blood Pressure 118/71 10/21/16 07:11 O2 Saturation by Pulse Oximetry 94 10/21/16 08:10 Oxygen Delivery Method Nasal Cannula Oxygen Flow Rate 1 Vital Signs Last 12 Hours Temp Pulse Resp BP Pulse Ox 10/21/16 08:10 94 10/21/16 07:11 98.3 F 90 16 118/71 94 10/21/16 02:02 97.7 F 90 16 101/59 91 10/21/16 02:00 16 Intake and Output 10/19/16 10/20/16 10/21/16 23:59 23:59 23:59 Intake Total 3523 1160 650 Output Total 1450 1700 350 Balance 2073 -540 300 General: Alert, Cooperative, No Acute Distress HEENT: Atraumatic Lungs: Other (air movement fairly good, but crackles at L base posteriorly, drain now in place, min output so far.) Cardiovascular: Regular Rate and Rhythm Abdomen: Soft, Normal Bowel Sounds, Non-Distended Extremities: No Edema, No Tenderness Skin: No Normal Color (sl pale) Neurological: Normal Speech Laboratory 10/21/16 06:20 10/21/16 06:20 10/21/16 06:20 RBC 3.55 L MCHC 31.7 L Calcium 8.5 L Alkaline Phosphatase 110 H Total Protein 5.4 L Albumin 2.7 L % Immature Granulocyt 2.0 H Current Medications: Current meds reviewed in EMR. Active Medications Acetaminophen (Tylenol) 650 mg PO Q6-8H PRN PRN Reason: Pain Last Admin: 10/20/16 19:18 Dose: 650 mg Acetaminophen/Hydrocodone Bitart ([place] 10/325) 0.5 - 1 tab PO Q4H [facility] Last Admin: 10/21/16 09:21 Dose: 1 tab Allopurinol (Zyloprim) 300 mg PO DAILY [facility] Last Admin: 10/21/16 09:24 Dose: 300 mg Alprazolam (Xanax) 0.5 mg PO TID PRN PRN Reason: Anxiety Last Admin: 10/20/16 21:51 Dose: 0.5 mg Aripiprazole (Abilify) 5 mg PO DAILY [facility] Last Admin: 10/21/16 09:19 Dose: 5 mg Benzocaine/Menthol (Cepacol) 1 each PO PRN PRN PRN Reason: Sore Throat Bisacodyl (Dulcolax) 10 mg [place] DAILY PRN PRN Reason: Constipation Bisacodyl (Dulcolax) 5 mg PO DAILY PRN PRN Reason: Constipation Bupropion HCl (Wellbutrin Xl) 300 mg PO QAM [facility] Last Admin: 10/21/16 09:22 Dose: 300 mg Buspirone HCl (Buspar) 30 mg PO QAM [facility] Last Admin: 10/21/16 09:21 Dose: 30 mg Buspirone HCl (Buspar) 15 mg PO QPM [facility] Last Admin: 10/20/16 19:17 Dose: 15 mg Cetirizine HCl (Zyrtec) 10 mg PO DAILY [facility] Last Admin: 10/21/16 09:21 Dose: 10 mg Cholecalciferol (Vitamin D3) 1,000 units PO DAILY [facility] Last Admin: 10/21/16 09:20 Dose: 1,000 units Cyanocobalamin (Vitamin B-12) 125 mcg PO DAILY [facility] Last Admin: 10/21/16 09:19 Dose: 125 mcg Docusate Sodium (Colace) 100 mg PO BID [facility] Last Admin: 10/21/16 09:23 Dose: 100 mg Fentanyl (Duragesic 25) 1 each TD Q72H [facility] Last Admin: 10/20/16 07:33 Dose: 1 each Ferrous Sulfate (Ferrous Sulfate) 325 mg PO 1130 [facility] Last Admin: 10/20/16 12:58 Dose: 325 mg Fluoxetine HCl (Prozac) 80 mg PO DAILY [facility] Last Admin: 10/21/16 09:20 Dose: 80 mg Fluticasone Propionate (Flonase Nasal [place]) 1 sprays NS DAILY [facility] Last Admin: 10/21/16 09:18 Dose: 1 sprays Folic Acid (Folic Acid) 1 mg PO DAILY [facility] Last Admin: 10/21/16 09:24 Dose: 1 mg Gabapentin (Neurontin) 600 mg PO TID [facility] Last Admin: 10/21/16 09:23 Dose: 600 mg Sodium Chloride (Sodium Chloride 0.9%) 100 mls @ 25 mls/hr IV PRN PRN PRN Reason: Flush Vancomycin HCl 2.5 g/ Sodium (Chloride) 550 mls @ 275 mls/hr IV Q24H [facility] PRN Reason: Protocol Last Admin: 10/20/16 16:49 Dose: 275 mls/hr Levothyroxine Sodium (Levothroid) 125 mcg PO QAMAC [facility] Last Admin: 10/21/16 07:25 Dose: 125 mcg Lidocaine HCl (Lidocaine 1% (Pres Free)) 2 - 5 ml PF X1 PRN PRN Reason: Pain from PICC line placement Lorazepam (Ativan) 0.5 - 1 mg IV X1 PRN PRN Reason: Anxiety during PICC Placement Magnesium Hydroxide (Milk Of Magnesia) 30 ml PO DAILY PRN PRN Reason: Constipation Miscellaneous (Remove Patch) 1 each TD Q3D [facility] Last Admin: 10/20/16 13:06 Dose: 1 each Multivitamins/Minerals (Theragran-M) 1 tab PO 1200 [facility] Last Admin: 10/20/16 12:57 Dose: 1 tab Naproxen (Naprosyn) 250 mg PO Q8H PRN PRN Reason: Pain Last Admin: 10/20/16 21:51 Dose: 250 mg Oxybutynin Chloride (Ditropan) 10 mg PO BID [facility] Last Admin: 10/21/16 09:23 Dose: 10 mg Petrolatum/Paraffin/Mineral Oil (Blistex) 1 each TP PRN PRN PRN Reason: Dry and/or chapped lips Sodium Chloride (Normal Saline 10ml Flush) 10 - 50 ml IV PRN PRN PRN Reason: IV Flush Last Admin: 10/20/16 19:11 Dose: 10 ml Sodium Chloride (Normal Saline 10ml Flush) 10 ml IV Q8HR [facility] Last Admin: 10/21/16 09:18 Dose: 10 ml Thiamine HCl (Thiamine Hcl) 100 mg PO DAILY [facility] Last Admin: 10/21/16 09:19 Dose: 100 mg - Problems: Assessment/Plan (1) CAP (community acquired pneumonia) Status: AcuteAssessment/Plan: presumed bacterial, with MRSA identified on culture from thoracocentesis from parapneumonic effusion/possible empyema. Diagnosed 2, initially tx with azithromycin. Had returned the next day for continued symptoms. Had been on Levaquin with improvement in WBC, but continued LUQ/flank pain out of proportion to degree of illness. CT revealed pleural effusion. Thoracentesis performed but fluid collection loculated and very little fluid obtained. Slight improvement on CXR, WBC trending down to expected range. Blood C xwith gram positive cocci in clusters (turned out to be coag neg), added vancomycin. Pleural Fluid culture = MRSA, so vanco continued. Pigtail cath in place now. PICC in place. 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 Continues pleasant and alert today. (3) Chronic pain Qualifiers: Chronic pain type: chronic pain syndrome Qualifier Code: (G89.4) Chronic pain syndrome Status: ChronicAssessment/Plan: Persisting effusion suspected cause, on (renewed) fentanyl patch and scheduled hydrocodone. (4) Hypertension Qualifiers: Hypertension type: essential hypertension Qualifier Code: (I10) Essential (primary) hypertension Status: ChronicAssessment/Plan: stable. (5) Hypokalemia Status: AcuteAssessment/Plan: Anticipate PO supplement VTE Prophylaxis: SCD Disposition: Return to adult foster home anticipated, but will need to see resolution of effusion. Will likely remain here over the next couple days, then determine if VATS needed or able to remove pleural catheter
--- NOTE | 2016-10-21 11:17 | RAD ---
10/21/2016 11:11 AM CHEST - 2 VIEWS History: Ultrasound-guided chest tube placement. Comparison: Plain films earlier on the same day. Findings: Two views of the chest are obtained. The lungs mild improvement in the patient's left-sided effusion is identified with areas of loculated effusion along the left chest wall. Pigtail catheter is identified compatible with the patient's history of recent drain placement. No pneumothorax. The cardiomediastinal silhouette is unremarkable.. The osseous structures are intact.. IMPRESSION: Left chest tube placement with mild improvement in the patient's loculated effusion. No pneumothorax.
[2016-10-21] MEDS: ALPRAZOLAM 0.25 MG TABLET PO PRN (11:21)
[2016-10-21] MEDS: MULTIVIT W/ MINERALS 1 TAB TABLET PO SCH (11:22)
[2016-10-21] MEDS: Potassium Chloride ORAL SOLN 20 MEQ/15 ML UDCUP PO SCH ×2 (11:22→20:27)
[2016-10-21] MEDS: FERROUS SULFATE (65 Fe) 325 MG TABLET PO SCH (11:22)
--- NOTE | 2016-10-21 11:39 | US ---
DRAIN ABCESS,HEMATOMA,SEROMA HISTORY: Pleural effusions. Request for chest tube placement. COMPARISONS: Chest x-ray earlier on the same day. Thoracentesis 10/17/2016 PROCEDURE: After written and verbal informed consent was obtained patient was seated on the examination table. Ultrasound was then used to localize a needle insertion site for access into the left pleural space. A preprocedure timeout was performed verifying the patient's identity, procedure, site and side. Skin was then prepped and draped in a sterile fashion. Lidocaine was used to anesthetize the skin. A 18-gauge Chiba needle was then advanced under sonographic guidance into the left pleural cavity. 8 [place] pigtail catheter was then exchanged over a Bentson wire using standard Seldinger technique. Catheter was secured to the skin with 3-0 Vicryl. Bulb suction syringe was attached. Patient was then cleansed, and bandage applied. Patient tolerated the procedure well and without immediate complication. Patient left sonography in stable condition inpatient services for further management and treatment.. FINDINGS: Multiple sonographic images during ultrasound-guided chest tube placement are obtained. These images demonstrate pocket of fluid within the pleural space. IMPRESSION: Successful ultrasound-guided chest tube placement as above. Follow-up as quickly warranted.
[2016-10-21] MEDS: LIDOCAINE 1% (PRES FREE) 5 ML VIAL PF PRN (12:10)
--- NOTE | 2016-10-21 13:14 | RAD ---
10/21/2016 1:09 PM CXR FOR PLACEMENT/LINE or TUBE History: Right-sided PICC placement. Comparison: Plain films earlier on the same day. Findings: Single AP view of the chest is obtained. The lungs demonstrate loculated left-sided effusion with chest tube. Associated compressive airspace disease is identified though underlying pneumonia cannot be excluded. The cardiomediastinal silhouette is unremarkable.. The osseous structures are intact.. Right-sided PICC terminates within the lower SVC just above the atrial caval junction. IMPRESSION: Stable appearance the chest status post right sided PICC placement as above. Findings were called to Dorene the PICC nurse at approximately 1303 hours on 10/21/2016.
[2016-10-21] MEDS: ACETAMINOPHEN 325 MG TABLET PO PRN (15:33)
[2016-10-21] MEDS ORDERED: GUAIFENESIN 400 MG TABLET PO PRN (17:13)
[2016-10-21] MEDS ORDERED: PUMP TUBING ONE (17:29)
[2016-10-21] MEDS: VANCOMYCIN HCL 2.5 G in SODIUM CHLORIDE 0.9% 500 ML IV SCH (17:38)
[2016-10-22] MEDS: HYDROCODONE BIT/ACETAMINOPHEN 10 MG/325 MG TAB PO SCH ×6 (01:24→20:53)
[2016-10-22] MEDS: ALPRAZOLAM 0.25 MG TABLET PO PRN ×2 (01:58→20:51)
[2016-10-22] MEDS: LEVOTHYROXINE SODIUM 125 MCG TABLET PO SCH (07:39)
--- NOTE | 2016-10-22 08:18 | RAD ---
Name: CLARITA MONK Exam: Single view chest Comparison: 10/21/2016 Clinical history: Follow-up pleural effusion Findings: Single view of the chest is submitted. Heart is enlarged. Mediastinum and hilar structures are normal. Multiloculated left pleural effusion is again identified. There is a coiled small caliber pleural catheter projected at the lateral margin left lung base similar to the prior. There is mild vascular prominence without current overt failure. There is no pneumothorax. Regional skeleton is unremarkable. The right approach PICC line now has its tip extending up the right side of the neck. There are multiple surgical clips at the base of the neck. Impression: 1. Loculated left pleural effusion unchanged from the prior 2. Small caliber left pleural catheter is in stable position 3. Cardiomegaly without current overt failure 4. Right approach PICC line now with its tip extending up the right side of the neck. Catheter needs to be readjusted. Note: Findings were discussed with Dr. Combs at 0813 hours
[2016-10-22] MEDS: DOCUSATE SODIUM 100 MG CAPSULE PO SCH ×2 (08:33→20:53)
[2016-10-22] MEDS: ALLOPURINOL 300 MG TABLET PO SCH (08:33)
[2016-10-22] MEDS: GABAPENTIN 600 MG TABLET PO SCH ×3 (08:33→20:52)
[2016-10-22] MEDS: THIAMINE HCL 100 MG TABLET PO SCH (08:34)
[2016-10-22] MEDS: CYANOCOBALAMIN (VITAMIN B-12) 250 MCG TABLET PO SCH (08:34)
[2016-10-22] MEDS: VITAMIN D3 1,000 UNITS CAP.LIQ PO SCH (08:34)
[2016-10-22] MEDS: FOLIC ACID 1 MG TABLET PO SCH (08:34)
[2016-10-22] MEDS: BUPROPION HCL 150 MG XL TAB.ER.24H PO SCH (08:35)
[2016-10-22] MEDS: CETIRIZINE HCL 10 MG TABLET PO SCH (08:36)
[2016-10-22] MEDS: FLUOXETINE HCL 20 MG CAPSULE PO SCH (08:37)
[2016-10-22] MEDS: BUSPIRONE HCL 10 MG TABLET PO SCH ×2 (08:38→20:52)
[2016-10-22] MEDS: ARIPIPRAZOLE 5 MG TABLET PO SCH (08:39)
[2016-10-22] MEDS: Potassium Chloride ORAL SOLN 20 MEQ/15 ML UDCUP PO SCH ×2 (08:40→20:54)
[2016-10-22] MEDS: FLUTICASONE PROPIONATE 50 MCG/SPRAY 120 SPRAYS/16 G INH NS SCH (08:41)
[2016-10-22] MEDS: OXYBUTYNIN CHLORIDE 5 MG TABLET PO SCH ×2 (08:50→20:52)
[2016-10-22] MEDS: MULTIVIT W/ MINERALS 1 TAB TABLET PO SCH (11:06)
[2016-10-22] MEDS: FERROUS SULFATE (65 Fe) 325 MG TABLET PO SCH (11:06)
[2016-10-22] MEDS: LIDOCAINE 1% (PRES FREE) 5 ML VIAL PF PRN (13:40)
--- NOTE | 2016-10-22 15:04 | RAD ---
Name: CLARITA MONK Exam: Chest Comparison: 10/22/2016 Clinical history: PICC line placement Findings: Single view the chest submitted heart is enlarged but stable. Mediastinum and hilar structures are normal. Loculated left pleural effusion is again identified. The small caliber left pleural catheter is poorly seen on this exam. Right lung is clear. The right PICC line has been replaced and now its tip is just below the cavoatrial junction. Impression: Interval exchange right PICC line. Catheter tip is projected just below the cavoatrial junction. Note: Findings were discussed with Dorene from infusion services at 1500 hours
--- NOTE | 2016-10-22 15:31 | PDOC43 ---
- Subjective Chief Complaint: shortness of breath, LUQ pain Patient reported to be doing ok, but CXR to follow up on pleural effusion had shown the PICC line to have migrated into the neck. Pt reports pain a little better. No GI c/o. Breathing ok. - Objective Vital Signs Temperature 98.4 F 10/22/16 13:41 Pulse Rate 99 10/22/16 13:41 Respiratory Rate 16 10/22/16 13:41 Blood Pressure 97/55 10/22/16 13:41 O2 Saturation by Pulse Oximetry 93 10/22/16 13:41 Oxygen Delivery Method Room Air Oxygen Flow Rate 0 Vital Signs Last 12 Hours Temp Pulse Resp BP Pulse Ox 10/22/16 13:41 98.4 F 99 16 97/55 93 10/22/16 10:02 91 10/22/16 07:33 98.2 F 96 16 115/69 94 Intake and Output 10/20/16 10/21/16 10/22/16 23:59 23:59 23:59 Intake Total 1160 2450 1571 Output Total 1700 1950 950 Balance -540 500 621 General: Alert, Cooperative, No Acute Distress Lungs: Other (some crackles L posterior base. REGINALD pigtail drain with small amount dark bloody fluid.) Cardiovascular: Regular Rate and Rhythm Abdomen: Soft, Normal Bowel Sounds, No Tenderness, No Rebounding Extremities: No Edema Skin: Normal Color Neurological: Normal Speech Psych/Mental Status: Normal Affect Laboratory 10/21/16 06:20 10/22/16 05:30 10/21/16 15:55 Vancomycin Trough 13.1 H Current Medications: Current meds reviewed in EMR. Active Medications Acetaminophen (Tylenol) 650 mg PO Q6-8H PRN PRN Reason: Pain Last Admin: 10/21/16 15:33 Dose: 650 mg Acetaminophen/Hydrocodone Bitart ([place] 10/325) 1 - 2 tab PO Q4H [facility]INA Last Admin: 10/22/16 12:58 Dose: 2 tab Allopurinol (Zyloprim) 300 mg PO DAILY [facility] Last Admin: 10/22/16 08:33 Dose: 300 mg Alprazolam (Xanax) 0.5 mg PO TID PRN PRN Reason: Anxiety Last Admin: 10/22/16 01:58 Dose: 0.5 mg Aripiprazole (Abilify) 5 mg PO DAILY [facility] Last Admin: 10/22/16 08:39 Dose: 5 mg Benzocaine/Menthol (Cepacol) 1 each PO PRN PRN PRN Reason: Sore Throat Bisacodyl (Dulcolax) 10 mg [place] DAILY PRN PRN Reason: Constipation Bisacodyl (Dulcolax) 5 mg PO DAILY PRN PRN Reason: Constipation Bupropion HCl (Wellbutrin Xl) 300 mg PO QAM [facility] Last Admin: 10/22/16 08:35 Dose: 300 mg Buspirone HCl (Buspar) 30 mg PO QAM [facility] Last Admin: 10/22/16 08:38 Dose: 30 mg Buspirone HCl (Buspar) 15 mg PO QPM [facility] Last Admin: 10/21/16 20:27 Dose: 15 mg Cetirizine HCl (Zyrtec) 10 mg PO DAILY [facility] Last Admin: 10/22/16 08:36 Dose: 10 mg Cholecalciferol (Vitamin D3) 1,000 units PO DAILY [facility] Last Admin: 10/22/16 08:34 Dose: 1,000 units Cyanocobalamin (Vitamin B-12) 125 mcg PO DAILY [facility] Last Admin: 10/22/16 08:34 Dose: 125 mcg Docusate Sodium (Colace) 100 mg PO BID [facility] Last Admin: 10/22/16 08:33 Dose: 100 mg Fentanyl (Duragesic 25) 1 each TD Q72H [facility] Last Admin: 10/20/16 07:33 Dose: 1 each Ferrous Sulfate (Ferrous Sulfate) 325 mg PO 1130 [facility] Last Admin: 10/22/16 11:06 Dose: 325 mg Fluoxetine HCl (Prozac) 80 mg PO DAILY [facility] Last Admin: 10/22/16 08:37 Dose: 80 mg Fluticasone Propionate (Flonase Nasal [place]) 1 sprays NS DAILY [facility] Last Admin: 10/22/16 08:41 Dose: 1 sprays Folic Acid (Folic Acid) 1 mg PO DAILY [facility] Last Admin: 10/22/16 08:34 Dose: 1 mg Gabapentin (Neurontin) 600 mg PO TID [facility] Last Admin: 10/22/16 08:33 Dose: 600 mg Guaifenesin (Guiafenesin) 400 mg PO Q6H PRN PRN Reason: Cough Last Admin: 10/22/16 01:58 Dose: 400 mg Sodium Chloride (Sodium Chloride 0.9%) 100 mls @ 25 mls/hr IV PRN PRN PRN Reason: Flush Vancomycin HCl 2.5 g/ Sodium (Chloride) 550 mls @ 220 mls/hr IV Q24H [facility]INA PRN Reason: Protocol Last Admin: 10/21/16 17:38 Dose: 220 mls/hr Levothyroxine Sodium (Levothroid) 125 mcg PO QAMAC [facility] Last Admin: 10/22/16 07:39 Dose: 125 mcg Lidocaine HCl (Lidocaine 1% (Pres Free)) 2 - 5 ml PF X1 PRN PRN Reason: Pain from PICC line placement Last Admin: 10/21/16 12:10 Dose: 4 ml Lorazepam (Ativan) 0.5 - 1 mg IV X1 PRN PRN Reason: Anxiety during PICC Placement Last Admin: 10/21/16 11:40 Dose: 0.5 mg Magnesium Hydroxide (Milk Of Magnesia) 30 ml PO DAILY PRN PRN Reason: Constipation Miscellaneous (Remove Patch) 1 each TD Q3D [facility] Last Admin: 10/20/16 13:06 Dose: 1 each Multivitamins/Minerals (Theragran-M) 1 tab PO 1200 [facility] Last Admin: 10/22/16 11:06 Dose: 1 tab Naproxen (Naprosyn) 250 mg PO Q8H PRN PRN Reason: Pain Last Admin: 10/20/16 21:51 Dose: 250 mg Oxybutynin Chloride (Ditropan) 10 mg PO BID [facility] Last Admin: 10/22/16 08:50 Dose: 10 mg Petrolatum/Paraffin/Mineral Oil (Blistex) 1 each TP PRN PRN PRN Reason: Dry and/or chapped lips Potassium Chloride (Potassium Chloride Oral Soln) 20 meq PO BID [facility] Last Admin: 10/22/16 08:40 Dose: 20 meq Sodium Chloride (Normal Saline 10ml Flush) 10 - 50 ml IV PRN PRN PRN Reason: IV Flush Last Admin: 10/21/16 17:40 Dose: 10 ml Sodium Chloride (Normal Saline 10ml Flush) 10 ml IV Q8HR [facility] Last Admin: 10/22/16 08:41 Dose: Not Given Thiamine HCl (Thiamine Hcl) 100 mg PO DAILY [facility] Last Admin: 02/11/17 08:34 Dose: 100 mg - Problems: Assessment/Plan (1) CAP (community acquired pneumonia) Status: AcuteAssessment/Plan: presumed bacterial, with MRSA identified on culture from thoracocentesis from parapneumonic effusion/possible empyema. Diagnosed 2, initially tx with azithromycin. Had returned the next day for continued symptoms. Had been on Levaquin with improvement in WBC, but continued LUQ/flank pain out of proportion to degree of illness. CT revealed pleural effusion. Thoracentesis performed but fluid collection loculated and very little fluid obtained. Slight improvement on CXR, WBC trending down to expected range. Blood C xwith gram positive cocci in clusters (turned out to be coag neg), added vancomycin. Pleural Fluid culture = MRSA, so vanco continued. Pigtail cath in place now. PICC in place. (2) Brain injury Qualifiers: Encounter type: sequela Loss of consciousness presence/duration: without LOC Qualifier Code: (S06.9X0S) Unspecified intracranial injury without loss of consciousness, sequela Status: ChronicAssessment/Plan: chronic condition 2nd to alcohol and drug abuse Stable. Continues pleasant and alert today. (3) Chronic pain Qualifiers: Chronic pain type: chronic pain syndrome Qualifier Code: (G89.4) Chronic pain syndrome Status: ChronicAssessment/Plan: Persisting effusion suspected cause, on (renewed) fentanyl patch and scheduled hydrocodone. (4) Hypertension Qualifiers: Hypertension type: essential hypertension Qualifier Code: (I10) Essential (primary) hypertension Status: ChronicAssessment/Plan: stable/on the low side, consider parameters. (5) Hypokalemia Status: AcuteAssessment/Plan: On PO supplement, will recheck in am. VTE Prophylaxis: SCD Disposition: Return to adult foster home anticipated, but will need to see resolution of effusion. Will likely remain here over the next couple days, then determine if VATS needed or able to remove pleural catheter
[2016-10-22] MEDS: VANCOMYCIN HCL 2.5 G in SODIUM CHLORIDE 0.9% 500 ML IV SCH (17:01)
[2016-10-23] MEDS: HYDROCODONE BIT/ACETAMINOPHEN 10 MG/325 MG TAB PO SCH ×4 (02:16→13:28)
[2016-10-23] MEDS: ALPRAZOLAM 0.25 MG TABLET PO PRN (04:06)
[2016-10-23 06:06] LABS: ALBUMIN 2.6 gm/dL (3.5-5.7); CALCIUM 8.4 mg/dL (8.6-10.3)
[2016-10-23 06:23] LABS: ABSOLUTE NEUTROPHIL COUNT 4.9 K/mm3 (1.8-7.7); BASO % 0.3 % (0.2-1.0); EOS # 0.3 (0.0-0.5); EOS % 3.9 % (0.9-2.9); HEMATOCRIT 30.7 % (37.0-47.0); HEMOGLOBIN 9.6 gm/l (12.0-16.0); IMM NEUT # 0.2 K/mm3 (0-0.2); IMM NEUT% 2.6 % (0-1); LYMPH # 1.1 (1.0-4.8); LYMPH % 15.6 % (15-45); MEAN CELL VOLUME 93.6 fl (81.0-99.0); MEAN CORPUSCULAR HEMOGLOBIN 29.3 pg (27.0-31.0); MEAN CORPUSCULAR HGB CONC 31.3 g/dl (33.0-37.0); MEAN PLATELET VOLUME 9.6 fl (7.4-10.4); MONO # 0.5 (0.0-0.8); MONO % 6.8 % (4-12); NEUT % 70.8 % (43-75); PLATELET COUNT 252 K/mm3 (130-400); RED CELL DISTRIBUTION WIDTH 13.5 % (11.5-14.5)
--- NOTE | 2016-10-23 06:58 | RAD ---
CHEST-AP BEDSIDE HISTORY: Follow-up pleural effusion. COMPARISONS: 10/22/2016. FINDINGS: A single view of the chest was obtained demonstrating an indwelling right-sided PICC catheter. The tip is not well-visualized in this examination due to slightly underpenetrated technique. There is a left-sided chest tube projecting over the lower portion of the left hemithorax. Persistent blunting of left costophrenic sulcus is seen with density along the lateral aspect of the chest likely residual loculated pleural fluid with associated left basilar atelectasis or infiltrate. No definite pneumothorax is seen. The hilar and mediastinal structures are intact. IMPRESSION: 1. A stable appearance of the left-sided chest tube with persistent blunting of the left costophrenic sulcus and the lateral soft tissue density likely a residual loculated pleural fluid component. Left basilar atelectasis or infiltrate is also identified. 2. A right-sided PICC catheter, though the tip is not well-visualized in this examination due to underpenetrated technique. No pneumothorax is visualized.
[2016-10-23] MEDS: LEVOTHYROXINE SODIUM 125 MCG TABLET PO SCH (07:27)
[2016-10-23] MEDS: FENTANYL PATCH 25 MCG/72 HR 1 EACH TD SCH (07:27)
[2016-10-23] MEDS: REMOVE PATCH 1 EACH UNIT TD SCH (07:28)
--- NOTE | 2016-10-23 07:40 | PDOC43 ---
- Subjective Chief Complaint: shortness of breath, LUQ pain due to pneumonia and effusion/poss empyema Patient reports some ongoing pain at L side of chest, not changed. Breathing otherwise ok. Eating ok. Walking some, but notes deconditioning. PICC line had to be adjusted yesterday due to migration. - Objective Vital Signs Temperature 99.3 F 10/23/16 02:21 Pulse Rate 92 10/23/16 02:21 Respiratory Rate 18 10/23/16 02:21 Blood Pressure 100/56 10/23/16 02:21 O2 Saturation by Pulse Oximetry 91 10/23/16 02:21 Oxygen Delivery Method Room Air Oxygen Flow Rate 0 Vital Signs Last 12 Hours Temp Pulse Resp BP Pulse Ox 10/23/16 02:21 99.3 F 92 18 100/56 91 10/23/16 02:10 18 10/22/16 20:00 18 10/22/16 19:27 98.9 F 103 18 115/59 94 Intake and Output 10/21/16 10/22/16 10/23/16 23:59 23:59 23:59 Intake Total 2450 2431 1104 Output Total 1950 1300 960 Balance 500 1131 144 Tubes/Drains Output: Tubes and Drains Output REGINALD #1 10 General: Alert, Cooperative, No Acute Distress HEENT: Atraumatic Lungs: Other (sl diminished breath sounds on L. REGINALD with minimal bloody drainage. ) Cardiovascular: Regular Rate and Rhythm Abdomen: Soft, Normal Bowel Sounds, Non-Distended Extremities: No Edema Neurological: Normal Speech Psych/Mental Status: Normal Affect (pleasant), Normal Mood Laboratory 10/23/16 05:15 10/23/16 05:15 10/23/16 05:15 RBC 3.28 L MCHC 31.3 L Calcium 8.4 L Alkaline Phosphatase 127 H Total Protein 5.2 L Albumin 2.6 L % Immature Granulocyt 2.6 H CXR 10/23: 1. A stable appearance of the left-sided chest tube with persistent blunting of the left costophrenic sulcus and the lateral soft tissue density likely a residual loculated pleural fluid component. Left basilar atelectasis or infiltrate is also identified. 2. A right-sided PICC catheter, though the tip is not well-visualized in this examination due to underpenetrated technique. No pneumothorax is visualized. Current Medications: Current meds reviewed in EMR. Active Medications Acetaminophen (Tylenol) 650 mg PO Q6-8H PRN PRN Reason: Pain Last Admin: 10/21/16 15:33 Dose: 650 mg Acetaminophen/Hydrocodone Bitart ([place] 10/325) 1 - 2 tab PO Q4H [facility] Last Admin: 10/23/16 05:50 Dose: 2 tab Allopurinol (Zyloprim) 300 mg PO DAILY [facility] Last Admin: 10/22/16 08:33 Dose: 300 mg Alprazolam (Xanax) 0.5 mg PO TID PRN PRN Reason: Anxiety Last Admin: 10/23/16 04:06 Dose: 0.5 mg Aripiprazole (Abilify) 5 mg PO DAILY [facility] Last Admin: 10/22/16 08:39 Dose: 5 mg Benzocaine/Menthol (Cepacol) 1 each PO PRN PRN PRN Reason: Sore Throat Bisacodyl (Dulcolax) 10 mg [place] DAILY PRN PRN Reason: Constipation Bisacodyl (Dulcolax) 5 mg PO DAILY PRN PRN Reason: Constipation Bupropion HCl (Wellbutrin Xl) 300 mg PO QAM [facility] Last Admin: 10/22/16 08:35 Dose: 300 mg Buspirone HCl (Buspar) 30 mg PO QAM [facility] Last Admin: 10/22/16 08:38 Dose: 30 mg Buspirone HCl (Buspar) 15 mg PO QPM [facility] Last Admin: 10/22/16 20:52 Dose: 15 mg Cetirizine HCl (Zyrtec) 10 mg PO DAILY [facility] Last Admin: 10/22/16 08:36 Dose: 10 mg Cholecalciferol (Vitamin D3) 1,000 units PO DAILY [facility] Last Admin: 10/22/16 08:34 Dose: 1,000 units Cyanocobalamin (Vitamin B-12) 125 mcg PO DAILY [facility] Last Admin: 10/22/16 08:34 Dose: 125 mcg Docusate Sodium (Colace) 100 mg PO BID [facility] Last Admin: 10/22/16 20:53 Dose: 100 mg Fentanyl (Duragesic 25) 1 each TD Q72H [facility] Last Admin: 10/20/16 07:33 Dose: 1 each Ferrous Sulfate (Ferrous Sulfate) 325 mg PO 1130 [facility] Last Admin: 10/22/16 11:06 Dose: 325 mg Fluoxetine HCl (Prozac) 80 mg PO DAILY [facility] Last Admin: 10/22/16 08:37 Dose: 80 mg Fluticasone Propionate (Flonase Nasal [place]) 1 sprays NS DAILY [facility] Last Admin: 10/22/16 08:41 Dose: 1 sprays Folic Acid (Folic Acid) 1 mg PO DAILY [facility] Last Admin: 10/22/16 08:34 Dose: 1 mg Gabapentin (Neurontin) 600 mg PO TID [facility] Last Admin: 10/22/16 20:52 Dose: 600 mg Guaifenesin (Guiafenesin) 400 mg PO Q6H PRN PRN Reason: Cough Last Admin: 10/22/16 01:58 Dose: 400 mg Sodium Chloride (Sodium Chloride 0.9%) 100 mls @ 25 mls/hr IV PRN PRN PRN Reason: Flush Vancomycin HCl 2.5 g/ Sodium (Chloride) 550 mls @ 220 mls/hr IV Q24H [facility] PRN Reason: Protocol Last Admin: 10/22/16 17:01 Dose: 220 mls/hr Levothyroxine Sodium (Levothroid) 125 mcg PO QAMAC [facility] Last Admin: 10/22/16 07:39 Dose: 125 mcg Lidocaine HCl (Lidocaine 1% (Pres Free)) 2 - 5 ml PF X1 PRN PRN Reason: Pain from PICC line placement Last Admin: 10/22/16 13:40 Dose: 3 ml Lorazepam (Ativan) 0.5 - 1 mg IV X1 PRN PRN Reason: Anxiety during PICC Placement Last Admin: 10/21/16 11:40 Dose: 0.5 mg Magnesium Hydroxide (Milk Of Magnesia) 30 ml PO DAILY PRN PRN Reason: Constipation Last Admin: 10/22/16 20:51 Dose: 30 ml Miscellaneous (Remove Patch) 1 each TD Q3D [facility] Last Admin: 10/20/16 13:06 Dose: 1 each Multivitamins/Minerals (Theragran-M) 1 tab PO 1200 [facility] Last Admin: 10/22/16 11:06 Dose: 1 tab Naproxen (Naprosyn) 250 mg PO Q8H PRN PRN Reason: Pain Last Admin: 10/20/16 21:51 Dose: 250 mg Oxybutynin Chloride (Ditropan) 10 mg PO BID [facility] Last Admin: 10/22/16 20:52 Dose: 10 mg Petrolatum/Paraffin/Mineral Oil (Blistex) 1 each TP PRN PRN PRN Reason: Dry and/or chapped lips Potassium Chloride (Potassium Chloride Oral Soln) 20 meq PO BID [facility] Last Admin: 10/22/16 20:54 Dose: 20 meq Sodium Chloride (Normal Saline 10ml Flush) 10 - 50 ml IV PRN PRN PRN Reason: IV Flush Last Admin: 10/23/16 05:50 Dose: 30 ml Sodium Chloride (Normal Saline 10ml Flush) 10 ml IV Q8HR [facility] Last Admin: 10/23/16 01:55 Dose: Not Given Thiamine HCl (Thiamine Hcl) 100 mg PO DAILY [facility] Last Admin: 10/22/16 08:34 Dose: 100 mg - Problems: Assessment/Plan (1) CAP (community acquired pneumonia) Status: AcuteAssessment/Plan: presumed bacterial, with MRSA identified on culture from thoracocentesis from parapneumonic effusion/possible empyema. Diagnosed 10/15, initially tx with azithromycin. Had returned the next day for continued symptoms. Had been on Levaquin with improvement in WBC, but continued LUQ/flank pain out of proportion to degree of illness. CT revealed pleural effusion. Thoracentesis performed but fluid collection loculated and very little fluid obtained. Slight improvement on CXR, WBC trending down to expected range. Blood Cx with gram positive cocci in clusters (turned out to be coag neg), added vancomycin at that time. However, Pleural Fluid culture = MRSA, so vanco has been continued. Pigtail cath in place now, minimal output so far. PICC in place (but it had needed repositioning 10/22 due to migration). (2) Brain injury Qualifiers: Encounter type: sequela Loss of consciousness presence/duration: without LOC Qualifier Code: (S06.9X0S) Unspecified intracranial injury without loss of consciousness, sequela Status: ChronicAssessment/Plan: chronic condition 2nd to alcohol and drug abuse Stable. Continues pleasant and alert today. (3) Chronic pain Qualifiers: Chronic pain type: chronic pain syndrome Qualifier Code: (G89.4) Chronic pain syndrome Status: ChronicAssessment/Plan: Persisting effusion suspected cause of LUQ pain, on fentanyl patch and scheduled hydrocodone. (4) Hypertension Qualifiers: Hypertension type: essential hypertension Qualifier Code: (I10) Essential (primary) hypertension Status: ChronicAssessment/Plan: stable/on the low side, consider parameters. (5) Hypokalemia Status: AcuteAssessment/Plan: On PO supplement, improved today at 4.1 VTE Prophylaxis: SCD Disposition: Return to adult foster home anticipated, but will need to see resolution of effusion. Will likely remain here over the next couple days, then determine if VATS needed or able to remove pleural catheter
[2016-10-23] MEDS: Potassium Chloride ORAL SOLN 20 MEQ/15 ML UDCUP PO SCH (08:31)
[2016-10-23] MEDS: FLUOXETINE HCL 20 MG CAPSULE PO SCH (08:31)
[2016-10-23] MEDS: VITAMIN D3 1,000 UNITS CAP.LIQ PO SCH (08:32)
[2016-10-23] MEDS: BUPROPION HCL 150 MG XL TAB.ER.24H PO SCH (08:32)
[2016-10-23] MEDS: THIAMINE HCL 100 MG TABLET PO SCH (08:34)
[2016-10-23] MEDS: BUSPIRONE HCL 10 MG TABLET PO SCH (08:34)
[2016-10-23] MEDS: ALLOPURINOL 300 MG TABLET PO SCH (08:35)
[2016-10-23] MEDS: CYANOCOBALAMIN (VITAMIN B-12) 250 MCG TABLET PO SCH (08:36)
[2016-10-23] MEDS: FOLIC ACID 1 MG TABLET PO SCH (08:36)
[2016-10-23] MEDS: OXYBUTYNIN CHLORIDE 5 MG TABLET PO SCH (08:36)
[2016-10-23] MEDS: DOCUSATE SODIUM 100 MG CAPSULE PO SCH (08:36)
[2016-10-23] MEDS: GABAPENTIN 600 MG TABLET PO SCH (08:37)
[2016-10-23] MEDS: CETIRIZINE HCL 10 MG TABLET PO SCH (08:38)
[2016-10-23] MEDS: FLUTICASONE PROPIONATE 50 MCG/SPRAY 120 SPRAYS/16 G INH NS SCH (08:41)
[2016-10-23] MEDS: ARIPIPRAZOLE 5 MG TABLET PO SCH (08:43)
[2016-10-23] MEDS ORDERED: KETOROLAC TROMETHAMINE 30 MG/ML 1 ML VIAL IV PRN (11:26)
[2016-10-23] MEDS: NAPROXEN 250 MG TABLET PO PRN (11:31)
[2016-10-23] MEDS: MULTIVIT W/ MINERALS 1 TAB TABLET PO SCH (11:31)
[2016-10-23] MEDS: FERROUS SULFATE (65 Fe) 325 MG TABLET PO SCH (11:32)
--- NOTE | 2016-10-23 12:13 | TS ---
CLARITA MONK [id number] TRANSFERRING DIAGNOSES: 1. Left sided parapneumonic effusion with concern for developing methicillin-resistant Staphylococcus aureus empyema. 2. History of organic brain syndrome, resident of adult foster care. 3. History of large cell B cell lymphoma in remission. 4. History of alcohol drug addiction. 5. Neuropathy. 6. Hypothyroidism. 7. Hypertension. 8. Depression with anxiety. 9. Chronic knee pain. 10. Full code status. REASON FOR ADMISSION: Patient is a 61-year-old female who had presented to the emergency department for left upper quadrant pain with dyspnea. She was noted to have three days of shortness of breath, and had initially been seen the day before found to have a pneumonia, given azithromycin and discharged to home. She did not improve, and with the abdominal pain worsening she returned to the emergency department. On admission, her white count was 16.7, hemoglobin 12.6, platelets 200, INR 0.8, and lactate 1.1. Chemistry profile had shown sodium 134, potassium 3.7, chloride 100, BUN 13, creatinine 0.8, and glucose 121. Liver enzymes normal. Troponin less than 0.01. Lipase less than 3. Urinalysis was unremarkable. Patient was referred to the Hospitalist service and placed on med surge. Given IV fluid hydration and was switched to Levaquin having felt that she was failing outpatient azithromycin therapy. Her regular medicines including her Fentanyl were continued. On admission, her vital signs had shown a temperature of high of 102.7, pulse 106, blood pressure 183/84, respirations 22, and 94% saturation on 3 L. On 10/17/2016, the patient underwent a CT of the abdomen to evaluate the pain as her abdominal pain was continuing. It showed a moderate left sided pleural effusion increased from chest x-ray 10/15/2016. Incidental findings of treated lymphoma, post cholecystectomy changes, bilateral adrenal nodules, and postsurgical changes in the stomach were noted. A chest CT was performed which showed moderate left sided pleural effusions. Patient underwent attempted thoracentesis and this was cultured. It showed 3577 white cells, 3000 red cells, and 96% neutrophils. Blood culture was read as having gram-positive cocci in clusters so was switched to vancomycin. The patient generally remained afebrile and vital signs improved. Required 2 L a minute or less of oxygen. She remains generally afebrile except for one time of a temperature of 101.2 on 10/20/2016. The blood culture returned as coag negative staph, but the pleural fluid demonstrated methicillin-resistant Staphylococcus aureus, so the vancomycin was continued, and the Levaquin was discontinued. She was noted to have continued infiltrate on chest x-ray and so this was reviewed with chest surgery and they suggest chest tube, or pigtail catheter placement which was performed on 10/21/2016 with production of minimal fluid. The patient underwent peripherally inserted central catheter line placement which was unremarkable except for the tube migrated into the neck noted on 10/22/2016. This was repositioned. By 10/23/2016, patient had a minimal output although had been improving the white blood cell count to 6.9, hemoglobin 9.6, and platelets 252. The sodium was 141, potassium 4.1, chloride 105, BUN 11, creatinine 0.8, glucose 93, mild elevation of alkaline phosphatase at 127, AST 17, and ALT 18 noted. Concern for loculated, or otherwise un-drainage effusion was considered and call made to [facility] regarding consideration for transfer for CT surgeon evaluation and treatment. Dr. Miller Yusuf recently accepted this patient in transfer and is anticipated to be transferred later today. MEDICATIONS: Patient's medications: 1. Acetaminophen 650 mg by mouth every 6 hours as needed. 2. [place] 10/325 one to two by mouth. 3. Allopurinol 300 mg daily. 4. Alprazolam 0.5 mg by mouth three times a day. 5. Abilify 5 mg by mouth daily. 6. Cepacol as needed. 7. Dulcolax 10 mg by mouth daily as needed, and 5 mg by mouth daily as needed. 8. Bupropion 300 mg XL by mouth every a.m. 9. BuSpar 30 mg by mouth every a.m. and 15 mg by mouth every p.m. 10. Zyrtec 10 mg by mouth daily. 11. Cholecalciferol 100 units by mouth daily. 12. Vitamin B12 at 125 mcg by mouth daily. 13. Colace 100 mg by mouth twice a day. 14. Fentanyl 25 one patch every 72 hours. 15. Ferrous sulfate 325 mg by mouth daily. 16. Fluoxetine 80 mg by mouth daily. 17. Flonase each nostril one spray daily. 18. Folic acid 1 mg by mouth daily. 19. Gabapentin 600 mg by mouth three times a day. 20. Guaifenesin 400 mg by mouth every 6 hours as needed. 21. Levothyroxine 125 mcg by mouth every a.m. 22. Lorazepam 0.5 to 1 mg IV as needed. 23. Milk of magnesia 30 mL by mouth daily as needed. 24. Theragran M by mouth daily. 25. Naproxen 250 mg by mouth every 8 hours as needed. 26. Oxybutynin 10 mg by mouth twice a day as scheduled. 27. Blistex topically as needed. 28. Potassium chloride solution 20 mEq by mouth twice a day. 29. Thiamin 100 mg by mouth daily. 30. Vancomycin 2.5 g by mouth every 24 hours. DISCHARGE EXAMINATION: VITAL SIGNS: At this time temperature 98.4, pulse 101, blood pressure 130/71, respirations 20, oxygen saturation 93% on room air. CODE STATUS: Full code. DISCHARGE CONDITION: Patient is ambulatory with limited walking in her room and is able to eat a regular diet, although is missing a number of teeth. NOTE: Much appreciation to Dr. Yusuf for agreeing to accept this patient. ANTONIO/radha cc: Heather Yusuf MD
[2016-10-23 14:44] VITALS: BP 112/72
== END 2016-10-23 14:50 | disposition short-term general hospital (02) | DRG 853 ==
LOC: ED 17:11 → MS 18:18
PROVIDERS: ADMIT Family Medicine; ATTEND Family Medicine
PROC: 0W9B4ZZ Drainage of Left Pleural Cavity, Percutaneous Endoscopic Approach (ICD-10-PCS; principal; 2016-10-17)
DX: A41.9 Sepsis, unspecified organism (principal); J18.8 Other pneumonia, unspecified organism; J90 Pleural effusion, not elsewhere classified; R09.02 Hypoxemia; F09 Unspecified mental disorder due to known physiological condition; E03.9 Hypothyroidism, unspecified; I10 Essential (primary) hypertension; G62.9 Polyneuropathy, unspecified; F32.9 Major depressive disorder, single episode, unspecified; F41.9 Anxiety disorder, unspecified; M25.569 Pain in unspecified knee; R32 Unspecified urinary incontinence; F19.21 Other psychoactive substance dependence, in remission; F10.21 Alcohol dependence, in remission; E66.01 Morbid (severe) obesity due to excess calories